=== PATIENT | female | born 1975 | race Caucasian/White ===

== ENCOUNTER → 2020-10-04 | Outpatient (CLI) | payer OTHER, SELFPAY ==
[2020-10-04 13:23] VITALS: BMI 34.9
[2020-10-06 20:08] LABS: Chlamydia By Nucleic Acid AMP Negative (Negative)
[2020-10-06 21:26] LABS: Gonococcus By Nucleic Acid AMP Negative (Negative)
== END | disposition home or self-care (01) ==
PROVIDERS: Visit Provider Nurse Practitioner Women's Health
DX: R10.2 Pelvic and perineal pain (principal)
CPT/HCPCS: 87070; 87086; 87088; 87205; 87491; 87591

== ENCOUNTER 2023-05-11 01:38 | Emergency (ER) | payer OTHER, SELFPAY ==
[2023-05-11 01:41] VITALS: BP 112/62; PULSE 112; RESP 22; TEMP 37.8; O2SAT 97; BMI 45.4
[2023-05-11 01:47] VITALS: BP 112/62; PULSE 110; RESP 24; TEMP 37.8; O2SAT 98
--- NOTE | 2023-05-11 01:54 | EX.ED.DYSGE1 ---
HPI History of Present Illness Chief Complaint: Fever Informant: patient Onset/Context/Timing Onset: Days (4) Context: Gradual Onset Timing: Continuous Quality: Cramping Location: Lower extremities Worsened by: Nothing Relieved by: Nothing Narrative Narrative: Patient presents with bilateral lower extremity pain that has been getting worse over the past 4 days. Patient states that has been constant. Patient describes it as cramping. Patient states that his over the thighs and lower legs. Patient states nothing makes it better nothing makes it worse. Patient states she was recently started on doxycycline for urinary tract infection. Patient states that since starting the doxycycline she has developed hives over her face, chest, and upper back. Patient denies any shortness of breath. Patient denies any difficulty swallowing. Patient does admit to some nausea but denies any vomiting. [facility] Medical History Encounter for Essure implantation Fibromyalgia Lupus (systemic lupus erythematosus) Pelvic pain West Nile fever Home Medications cholecalciferol (vitamin D3) 50 mcg (2,000 unit) tablet (Vitamin D3) 2,000 unit PO DAILY 05/15/13 [History Last Taken Unknown] hydroxychloroquine 200 mg tablet 300 mg PO DAILYCM 05/15/13 [History Last Taken Unknown] levothyroxine 137 mcg tablet 137 mcg PO DAILY 05/15/13 [History Last Taken Unknown] ferrous sulfate 325 mg (65 mg iron) tablet (Feosol) 325 mg PO DAILY 10/04/20 [History Last Taken Unknown] magnesium oxide 250 mg PO DAILY 10/04/20 [History Last Taken Unknown] mecobalamin (vitamin B12) 1,000 mcg disintegrating tablet,sublingual 1,000 mcg sublingual DAILY 10/04/20 [History Last Taken Unknown] bisoprolol fumarate 5 mg tablet 2.5 mg PO DAILY 05/11/23 [History Last Taken Unknown] cyclobenzaprine 10 mg tablet 10 mg PO Q12H PRN muscle spasm 05/11/23 [History Last Taken Unknown] doxycycline hyclate 100 mg capsule 100 mg PO Q12H 05/11/23 [History Last Taken Unknown] prednisone 20 mg tablet 60 mg (3 x 20 mg) PO DAILY #15 TABLETS 05/11/23 [Rx Last Taken Unknown] Allergy/AdvReac Type Severity Reaction Status Date / Time cephalexin Allergy Mild swelling Verified 10/04/20 13:11 clindamycin Allergy Mild rash Verified 10/04/20 13:11 lidocaine Allergy Mild unknown Verified 10/04/20 13:11 acetaminophen [From Percocet] Allergy Rash Verified 10/04/20 13:11 amitriptyline Allergy mental Verified 10/04/20 13:11 status change ciprofloxacin Allergy Anaphylaxis Verified 10/04/20 13:11 hydromorphone HCl Allergy Other Verified 10/04/20 13:11 [From Dilaudid] latex Allergy Rash Verified 10/04/20 13:11 morphine Allergy Hives Verified 10/04/20 13:11 oxaprozin [Oxaprozin] Allergy Rash Verified 10/04/20 13:11 oxycodone HCl [From Percocet] Allergy Rash Verified 10/04/20 13:11 Penicillins Allergy Rash Verified 10/04/20 13:11 sulfamethoxazole Allergy Rash Verified 10/04/20 13:11 [From Bactrim] tramadol HCl [From Ultram] Allergy Itching Verified 10/04/20 13:11 trimethoprim [From Bactrim] Allergy Rash Verified 10/04/20 13:11 Family History (Updated 10/04/20 @ 13:21 by Tish Skaggs) Grandmother Breast cancer Congestive heart failure Hypertension Diabetes Grandfather Diabetes Alzheimer disease Mother Graves disease Grandfather Myocardial infarction Surgical History S/P endometrial ablation S/P tonsillectomy S/P wisdom tooth extraction Status post breast reduction Social History Smoking Status: Former smoker alcohol intake: current details: occasionally substance use type: marijuana caffeine: No what type of physical activity do you participate in: aerobics and weight training frequency: 3-4 times per week seatbelt use: always do you feel safe at home: Yes additional social history: ( not legally) ROS ROS ED Constitutional Constitutional ED: Denies chills or fever(s) Eyes Eyes: Denies blurry vision or change in vision ENT ENT ED: Reports sore throat; Denies rhinorrhea Cardiovascular Cardiovascular: Denies chest pain or palpitations Respiratory/Chest Respiratory/Chest: Denies cough or dyspnea Gastrointestinal Gastrointestinal: Reports nausea; Denies vomiting Genitourinary Genitourinary ED: Denies dysuria or hematuria Musculoskeletal Musculoskeletal: Denies back pain or neck pain Integumentary Reports rash; Denies abscess Neurologic Neurologic: Reports headache(s); Denies weakness Allergic/Immunologic Allergic/Immunologic ED: Reports urticaria; Denies mouth swelling EXAM Physical Exam Const Vital Signs: 05/11/23 01:41 05/11/23 01:47 05/11/23 01:48 Temperature 100.1 F H 100.1 F H Temperature Source Oral Oral Pulse Rate 112 H 110 H Respiratory Rate 22 H 24 H Respiratory Pattern Tachypnea Blood Pressure 112/62 112/62 Blood Pressure Mean 78 78 Pulse Ox 97 98 Oxygen Delivery Method Room Air Room Air 05/11/23 05:39 05/11/23 06:14 05/11/23 08:09 Temperature 98.1 F 98.5 F 97.9 F Temperature Source Oral Oral Pulse Rate 95 92 83 Respiratory Rate 18 19 H 16 Respiratory Pattern Blood Pressure 95/53 L 101/56 L 89/56 L Blood Pressure Mean 67 71 67 Pulse Ox 95 97 95 Oxygen Delivery Method Room Air Room Air Positive well nourished and well developed General Appearance ED: well developed and NAD HEENT Reports moist mucous membranes Neck supple and no JVD Chest Wall inspection of chest normal and palpation of chest normal Resp normal respiratory effort and clear to auscultation bilaterally Cardio regular rate and regular rhythm GI non-tender and non-distended Palpation: soft Back/Spine Back/Spine Narrative: There is tenderness to palpation of the lower extremities bilaterally. There is no edema. There is no erythema or warmth noted. There is full range of motion. Pedal pulses are equal bilaterally. Sensation was intact to light touch bilateral lower extremities. Strength is 5/5 bilaterally in the lower extremities. Extremity normal to inspection Neuro oriented x3, CN's II-XII intact bilaterally and no sensory deficits noted Sensorium / Orientation: alert Motor Exam: strength 5/5 throughout Psych mental status grossly normal Skin Skin Narrative: There is an urticarial rash noted over the face, upper chest, and upper back. There are no vesicles or pustules noted. There is no involvement of mucous membranes. There are no petechia noted. There is no involvement of the palms or soles. MDM MDM MDM Narrative Medical decision making narrative: Differential diagnosis includes electrolyte abnormality, anxiety, allergic reaction, autoimmune reaction, and infection. CBC will be obtained to assess for leukocytosis and anemia. Basic metabolic profile will be obtained to assess for electrolyte abnormality and renal function. Urinalysis will be obtained to assess for urinary tract infection and hematuria. Lab Data Attestation: I reviewed the patient's lab results. Lab results narrative: CBC was reviewed and was within normal limits. Basic metabolic profile was reviewed. Sodium was slightly low at 129 and potassium was 3.3. Chloride was slightly low at 95. Creatinine was slightly elevated at 1.03. The remainder is within normal limits. Urinalysis was reviewed. There is a leukocyte esterase of 25 with 2+ bacteria. There is 0-5 white blood cells seen however. Urine bilirubin was 3 and urine urobilinogen was 4. Occult blood was 25. There is 0 red blood cells. Labs: Laboratory Results - last 24 hr 05/11/23 05/11/23 05:05 05:45 WBC 9.8 RBC 4.78 Hgb 14.2 Hct 40.6 MCV 84.9 MCH 29.7 MCHC 35.0 RDW Std Deviation 36.1 RDW Coeff of Genesis 11.7 Plt Count 108 L MPV 10.3 Immature Gran % (Auto) 0.400 Neut % (Auto) 91.6 H Lymph % (Auto) 5.3 L [place] % (Auto) 2.0 Eos % (Auto) 0.3 Baso % (Auto) 0.4 Absolute Neuts (auto) 9.0 H Absolute Lymphs (auto) 0.52 L Nucleated RBC % 0 Differential Comment SCANNED Sodium 129 L Potassium 3.3 L Chloride 95 L Carbon Dioxide 27.0 Anion Gap 7 BUN 15 Creatinine 1.03 H Estim Creat Clear Calc 55.25 Est GFR (MDRD) Af Amer 73 Est GFR (MDRD) Non-Af 61 BUN/Creatinine Ratio 14.6 Glucose 115 H Calcium 8.1 L Urine Color Tisha Urine Clarity Sl. Cloudy Urine pH 5.0 Ur Specific [place] 1.025 Urine Protein 100 H Urine Glucose (UA) Normal Urine Ketones 5 H Urine Occult Blood 25 H Urine Nitrite Positive H Urine Bilirubin 3 H Urine Urobilinogen 4 H Ur Leukocyte Esterase 25 H Urine RBC 0 SEEN Urine WBC 0-5 SEEN Ur Squamous Epith Cells 0-5 SEEN Urine Bacteria 2+ Coarse Granular Casts 10-25 SEEN Urine Mucus 0 SEEN Treatment and Re-Evaluation :: Patient was given IV fluids. Patient was given Toradol, Zofran, Solu-Medrol, and Benadryl. Patient was feeling better on reevaluation. Patient was advised of her findings. Patient was instructed to drink plenty of fluids. Patient was instructed to finish her doxycycline as prescribed. Patient was given a prescription for prednisone. Patient was instructed to follow-up with her primary care physician in 5 to 7 days. Patient understood and was agreeable with the plan. All questions were answered. Discharge Plan Triage Chief Complaint: Fever Other Complaint: Lower Extremity Injury ED Provider: Johny Chen Dx/Rx/DC Orders Clinical Impression: Lower extremity pain, Urinary tract infection, Urticaria Instructions: ED Hives (Adult), ED Pain, Acute, Uncertain Cause Prescriptions: New prednisone 20 mg tablet 60 mg PO DAILY Qty: 15 0RF No Action ferrous sulfate [Feosol] 325 mg (65 mg iron) tablet 325 mg PO DAILY magnesium oxide 250 mg magnesium tablet 250 mg PO DAILY mecobalamin (vitamin B12) 1,000 mcg tablet,disintegrating 1,000 mcg sublingual DAILY Rx Instructions: place tablet under tongue and allow to dissolve for at least30 secs before swallowing levothyroxine 137 MCG tablet 137 mcg PO DAILY hydroxychloroquine 200 MG tablet 300 mg PO DAILYCM cholecalciferol (vitamin D3) [Vitamin D3] 2,000 UNIT tablet 2,000 unit PO DAILY doxycycline hyclate 100 mg capsule 100 mg PO Q12H Patient Comments: take 1 capsule by mouth twice a day for 10 days --WITH LARGE GLAS... (REFER TO PRESCRIPTION NOTES). cyclobenzaprine 10 mg tablet 10 mg PO Q12H PRN (Reason: muscle spasm) Patient Comments: take 1/2 to 1 tablet by mouth three times a day if needed for muscle spasm bisoprolol fumarate 5 mg tablet 2.5 mg PO DAILY Patient Comments: take 1/2 tablet by mouth daily Referrals: Bala Lindquist [[facility]] - 3-5 Days Disposition Disposition: Home, Self Care Discharge Date/Time: 05/11/23 08:11
[2023-05-11] MEDS: 0.9% Normal Saline (1000mL) 1,000 ML 1000 ML IV (04:59)
[2023-05-11] MEDS: Ondansetron 4 MG/2 ML Vial IV (05:00)
[2023-05-11] MEDS: Ketorolac 30 MG/ML Syringe IV (05:01)
[2023-05-11] MEDS: DiphenhydrAMINE 50 MG/ML Syringe 25 MG IV (05:02)
[2023-05-11] MEDS: MethylPREDNISolone 125 MG/2 ML Vial 60 MG IV (05:04)
[2023-05-11 05:15] LABS: Absolute Lymphocyte Count 0.52 X10^3/uL (0.83-4.51); Basophil# 0.04 X10^3/uL; Basophil% 0.4 % (0-1); Eosinophil# 0.03 X10^3/uL; Eosinophils% 0.3 % (0-5); Hematocrit 40.6 % (37-47); Hemoglobin 14.2 g/dL (12.0-15.0); Lymphocyte # 0.52 X10^3/ul (0.83-4.51); Lymphocyte % 5.3 % (19-41); Mean Corpuscular Hgb 29.7 pg (27.0-32.0); Mean Corpuscular Volume 84.9 fL (81-99); Mean Platelet Vol. 10.3 fl (6.2-12.0); NRBC Flagged by Analyzer 0 % (0-5); Neutrophil # 8.98 X10^3/uL (2.7-7.7); Neutrophil % 91.6 % (47-70); POSITIVE DIFFERENTIAL YES; POSITIVE MORPHOLOGY YES; Platelet Count 108 K/mm3 (150-450); RBC Distribution Width CV 11.7 % (11.6-14.6); RBC Distribution Width SD 36.1 fl (35.1-43.9); Red Blood Count 4.78 M/mm3 (4.2-5.4); White Blood Count 9.8 K/mm3 (4.4-11.0)
[2023-05-11 05:17] LABS: Differential Indicated SCAN CRITERIA MET
[2023-05-11 05:29] LABS: Anion Gap 7 (5-15); BUN 15 mg/dL (7-18); BUN/Creat Ratio 14.6 RATIO (10-20); Calcium,Total 8.1 mg/dL (8.5-10.1); Chloride 95 mmol/L (98-107); Creatinine, Serum 1.03 mg/dL (0.55-1.02); EST Glomerular Filtration Rate 61 mL/min (>60); Est Glom Filt Rate - Afr Amer 73 mL/min (>60); Estimated Creatinine Clearance 55.25 ml/min; Glucose 115 mg/dL (74-106); Potassium 3.3 mmol/L (3.5-5.1); Sodium Level 129 mmol/L (136-145)
[2023-05-11 05:39] VITALS: BP 95/53; PULSE 95; RESP 18; TEMP 36.7; O2SAT 95
[2023-05-11 05:44] LABS: Differential Comment SCANNED
[2023-05-11 05:54] LABS: Mucous, Urine 0 SEEN /hpf (<or=2+); Red Blood Cells-Urine 0 SEEN /hpf (0-5)
[2023-05-11 05:55] LABS: Color, Urine Amber (Yellow); Glucose, Dipstick Normal (Normal); Ketone-Dipstick 5 mg/dl (Negative); Leukocyte Esterase-Dipstick 25 /ul (Negative); Nitrite-Dipstick Positive (Negative); Occult Blood-Urine 25 /ul (Negative); Protein-Dipstick 100 mg/dl (Negative); Specific Gravity, Urine 1.025 (1.002-1.030); Urine Clarity Sl. Cloudy (Clear); Urine Urobilinogen 4 mg/dl (Normal)
[2023-05-11 06:08] LABS: Urine Bilirubin Dipstick 3 mg/dL (Negative)
[2023-05-11 06:10] LABS: Bacteria 2+ /hpf (None Seen); Squamous Epithelial Cells - UA 0-5 SEEN /hpf (5-10); White Blood Cells 0-5 SEEN /hpf (0-5)
[2023-05-11 06:11] LABS: Coarse Granular Cast 10-25 SEEN /lpf (0-5 /lpf)
[2023-05-11 06:14] VITALS: BP 101/56; PULSE 92; RESP 19; TEMP 36.9; O2SAT 97
[2023-05-11 08:09] VITALS: BP 89/56; PULSE 83; RESP 16; TEMP 36.6; O2SAT 95
--- NOTE | 2023-05-11 08:10 | ED.RN ---
dr aware of lower bp but MAP 68.
== END 2023-05-11 08:11 | disposition home or self-care (01) ==
PROVIDERS: Emergency Provider Emergency Medicine; Visit Provider Emergency Medicine
DX: M79.651 Pain in right thigh (principal); M32.9 Systemic lupus erythematosus, unspecified; M79.652 Pain in left thigh; M79.661 Pain in right lower leg; M79.662 Pain in left lower leg; N39.0 Urinary tract infection, site not specified; R11.0 Nausea; L50.9 Urticaria, unspecified; Z87.891 Personal history of nicotine dependence; Z79.899 Other long term (current) drug therapy
CPT/HCPCS: 80048; 81001; 85025; 96361; 96374; 96375; 99285; J7030; A4216; J2405

== ENCOUNTER 2023-05-16 09:31 | Emergency (ER) | payer OTHER, SELFPAY ==
[2023-05-16 09:34] VITALS: BP 121/108; PULSE 118; RESP 20; TEMP 36.6; O2SAT 99
--- NOTE | 2023-05-16 10:02 | EX.ED.DYSGE1 ---
HPI History of Present Illness Chief Complaint: Rash Informant: patient and spouse/S.O. Narrative Narrative: Patient presents with hives and generally not feeling well. Patient states she started doxycycline last . She had gone to her doctor for routine follow-up of her multiple medical illnesses. Patient has fibromyalgia, Sjogren's syndrome, Raynaud's, thyroid disease and lupus. She is being worked up for mast cell problems due to her multiple allergies. During the exam for that visit, she was found to have a raging ear infection on the left side. She was not having symptoms of this. She was placed on doxycycline. Almost immediately after taking it on she developed hives. She kept taking it Saturday and Saturday and then came in here. At that point the doxycycline was stopped and she was started on prednisone. She is now finished that. She has also been taking Benadryl. She states the rash is still present. She also has been having bilateral leg pain but that has been going on for a while. At the end of the visit she states what she would like is to be admitted because she just does not feel well. It sounds like this not feeling well predates this rash significantly but the rash has caused significant stress for her. [facility] Medical History Encounter for Essure implantation Fibromyalgia Lupus (systemic lupus erythematosus) Pelvic pain West Nile fever Home Medications hydroxychloroquine 200 mg tablet 300 mg PO DAILYCM 05/15/13 [History Last Taken Unknown] levothyroxine 137 mcg tablet 137 mcg PO DAILY 05/15/13 [History Last Taken Unknown] bisoprolol fumarate 5 mg tablet 2.5 mg PO DAILY 05/11/23 [History Last Taken Unknown] cyclobenzaprine 10 mg tablet 10 mg PO TID PRN PRN muscle spasm 05/11/23 [History Last Taken Unknown] doxycycline hyclate 100 mg capsule 100 mg PO Q12H 05/11/23 [History Last Taken Unknown] lamotrigine 25 mg tablet 50 mg PO QHS 05/16/23 [History Last Taken Unknown] montelukast 10 mg tablet 10 mg PO QHS 05/16/23 [History Last Taken Unknown] prednisone 20 mg tablet 60 mg (3 x 20 mg) PO DAILY 4 days #12 TABLETS 12/28/23 [Rx Last Taken Unknown] Allergy/AdvReac Type Severity Reaction Status Date / Time doxycycline Allergy Intermediate Rash Verified 05/16/23 09:33 cephalexin Allergy Mild swelling Verified 05/16/23 09:33 clindamycin Allergy Mild rash Verified 05/16/23 09:33 lidocaine Allergy Mild unknown Verified 05/16/23 09:33 acetaminophen [From Percocet] Allergy Rash Verified 05/16/23 09:33 amitriptyline Allergy mental Verified 05/16/23 09:33 status change ciprofloxacin Allergy Anaphylaxis Verified 05/16/23 09:33 hydromorphone HCl Allergy Other Verified 05/16/23 09:33 [From Dilaudid] latex Allergy Rash Verified 05/16/23 09:33 morphine Allergy Hives Verified 05/16/23 09:33 oxaprozin [Oxaprozin] Allergy Rash Verified 05/16/23 09:33 oxycodone HCl [From Percocet] Allergy Rash Verified 05/16/23 09:33 Penicillins Allergy Rash Verified 05/16/23 09:33 sulfamethoxazole Allergy Rash Verified 05/16/23 09:33 [From Bactrim] tramadol HCl [From Ultram] Allergy Itching Verified 05/16/23 09:33 trimethoprim [From Bactrim] Allergy Rash Verified 05/16/23 09:33 Family History Grandmother Breast cancer Congestive heart failure Hypertension Diabetes Grandfather Diabetes Alzheimer disease Mother Graves disease Grandfather Myocardial infarction Surgical History S/P endometrial ablation S/P tonsillectomy S/P wisdom tooth extraction Status post breast reduction Social History Smoking Status: Former smoker alcohol intake: current details: occasionally substance use type: marijuana caffeine: No what type of physical activity do you participate in: aerobics and weight training frequency: 3-4 times per week seatbelt use: always do you feel safe at home: Yes additional social history: ( not legally) ROS ROS ED Constitutional Constitutional ED: Denies chills, fever(s) or subjective Eyes Eyes: Denies change in vision ENT ENT ED: Reports other Details: Patient states she is not eating. But then I find out she is drinking protein shakes and drinking plenty of fluids. She states when food touches her mouth it haley so she does not eat it. But she is still moving bowels. She is not nauseated ; Denies ear pain, rhinorrhea or sore throat Cardiovascular Cardiovascular: Denies chest pain Respiratory/Chest Respiratory/Chest: Denies cough or dyspnea Gastrointestinal Gastrointestinal: Denies abdominal pain, constipation, diarrhea, nausea or vomiting Genitourinary Genitourinary ED: Denies dysuria Musculoskeletal Musculoskeletal: Reports arthralgias, myalgias and other Details: Patient has chronic pains but these are not new or different today. Integumentary Reports rash Neurologic Neurologic: Reports other Details: Patient feels generalized weakness but nothing focal. Psychiatric Psychiatric: Reports anxiety Hematologic/Lymphatic Hematologic/Lymphatic: Denies easy bleeding, easy bruising or lymphadenopathy Allergic/Immunologic Allergic/Immunologic ED: Reports urticaria; Denies mouth swelling or tongue swelling EXAM Physical Exam Narrative Exam Narrative: Patient is awake alert. She is in no acute distress. Hives are visible. HEENT: Mucous membranes are still moist. I do not see any sores or lesions ulcerations or petechiae. No swelling. Her voice is normal. No sinus tenderness. Both tympanic membranes look clear. There is trace fluid which can be normal. There is some wax in the canals but no sign of an otitis externa. She does not look clinically infected at this time. Neck is supple without stridor lymphadenopathy Heart is regular. Rate sounds to be about 90 at this time. Peripheral pulses are normal x 4. Lungs are clear bilaterally and saturations are normal at 99% on room air showing no hypoxia. Abdomen is soft and nontender. Of note patient is drinking some fluids now. No CVA tenderness. Extremities show no asymmetry swelling or because of her ongoing leg pain. Skin does show diffuse hives and erythema. This blanches easily. No vesicles. No petechiae. Const Vital Signs: 05/16/23 09:34 05/16/23 10:45 Temperature 98 F 98.1 F Temperature Source Temporal Oral Pulse Rate 118 H 104 H Respiratory Rate 20 H 16 Blood Pressure 121/108 H 112/86 H Blood Pressure Mean 112 94 Pulse Ox 99 100 Oxygen Delivery Method Room Air Room Air MDM MDM MDM Narrative Medical decision making narrative: Patient CBC does show an elevated white count but she has been on prednisone. Platelets and hemoglobin are normal. Patient's electrolytes show no marked abnormalities. There is a slight increase of BUN and creatinine ratio consistent with the high ratio she was also given a fluid as here. Glucose is controlled. Sodium is minimally low at 132. Patient's liver function tests do show slight bump. But this can also happen with steroids. She is not having abdominal pain and she has no right upper quadrant tenderness at all. I think this can be followed as an outpatient. I did recheck her. She is less flushed on the face. Rash on the body does not look to be markedly different. I believe the patient's hives are due to doxycycline. She last stopped this about 5 days ago. This medicine has a long half-life of almost 1 day. So she is just getting to the point where the medicine is out of her system at about 5 to 5-1/2 half-lives. Therefore I am not so surprised that her hives are not gone. I will continue her steroids for another 4 days. She will follow-up with her primary physician. Lab Data Attestation: I reviewed the patient's lab results. Labs: Laboratory Results - last 24 hr 05/16/23 10:20 WBC 14.1 H RBC 4.96 Hgb 14.7 Hct 41.9 MCV 84.5 MCH 29.6 MCHC 35.1 RDW Std Deviation 40.0 RDW Coeff of Genesis 13.1 Plt Count 341 MPV 9.9 Immature Gran % (Auto) 4.000 H Neut % (Auto) 69.6 Lymph % (Auto) 11.4 L [place] % (Auto) 9.1 Eos % (Auto) 5.5 H Baso % (Auto) 0.4 Absolute Neuts (auto) 9.8 H Absolute Lymphs (auto) 1.61 Nucleated RBC % 0 Sodium 132 L Potassium 3.6 Chloride 98 Carbon Dioxide 27.0 Anion Gap 7 BUN 33 H Creatinine 1.16 H Est GFR (MDRD) Af Amer 64 Est GFR (MDRD) Non-Af 53 L BUN/Creatinine Ratio 28.4 H Glucose 88 Calcium 8.6 Total Bilirubin 0.70 AST 162 H ALT 87 H Alkaline Phosphatase 183 H Total Protein 6.1 L Albumin 2.4 L Globulin 3.7 Albumin/Globulin Ratio 0.6 L Discharge Plan Triage Chief Complaint: Rash ED Provider: Corwin Zepeda Dx/Rx/DC Orders Clinical Impression: Allergy to antibiotic, Hives Instructions: ED Hives (Adult) Prescriptions: New prednisone 20 mg tablet 60 mg PO DAILY 4 Days Qty: 12 0RF No Action levothyroxine 137 MCG tablet 137 mcg PO DAILY hydroxychloroquine 200 MG tablet 300 mg PO DAILYCM doxycycline hyclate 100 mg capsule 100 mg PO Q12H Patient Comments: take 1 capsule by mouth twice a day for 10 days --WITH LARGE GLAS... (REFER TO PRESCRIPTION NOTES). cyclobenzaprine 10 mg tablet 10 mg PO TID PRN PRN (Reason: muscle spasm) Patient Comments: take 1/2 to 1 tablet by mouth three times a day if needed for muscle spasm bisoprolol fumarate 5 mg tablet 2.5 mg PO DAILY Patient Comments: take 1/2 tablet by mouth daily lamotrigine 25 mg tablet 50 mg PO QHS Patient Comments: take 1 tablet by mouth at bedtime for 2 weeks then INCREASE to 2 tablets THEREAFTER montelukast 10 mg tablet 10 mg PO QHS Patient Comments: take 1 tablet by mouth nightly Primary Care Provider: Kortney Mcintyre MD Referrals: Care Physician,No Primary [Non-Staff] - Activity Restrictions/Additional Instructions: Follow-up with your primary physician, Dr. Mcintyre in the next few days for recheck. Disposition Disposition: Home, Self Care
[2023-05-16] MEDS: 0.9% Normal Saline (1000mL) 1,000 ML 1000 ML IV (10:10)
[2023-05-16] MEDS: MethylPREDNISolone 125 MG/2 ML Vial 60 MG IV (10:11)
[2023-05-16] MEDS: DiphenhydrAMINE 50 MG/ML Syringe 25 MG IV (10:17)
[2023-05-16 10:29] LABS: Absolute Lymphocyte Count 1.61 X10^3/uL (0.83-4.51); Absolute Neutrophil Count 9.8 X10^3/uL (2.0-7.7); Basophil# 0.06 X10^3/uL; Basophil% 0.4 % (0-1); Eosinophil# 0.78 X10^3/uL; Eosinophils% 5.5 % (0-5); Hematocrit 41.9 % (37-47); Hemoglobin 14.7 g/dL (12.0-15.0); Lymphocyte # 1.61 X10^3/ul (0.83-4.51); Lymphocyte % 11.4 % (19-41); Mean Corp Hgb Conc 35.1 g/dL (32-36); Mean Corpuscular Hgb 29.6 pg (27.0-32.0); Mean Corpuscular Volume 84.5 fL (81-99); Mean Platelet Vol. 9.9 fl (6.2-12.0); Monocyte# 1.28 X10^3/uL; Monocyte% 9.1 % (0-10); NRBC Flagged by Analyzer 0 % (0-5); Neutrophil # 9.82 X10^3/uL (2.7-7.7); Neutrophil % 69.6 % (47-70); Platelet Count 341 K/mm3 (150-450); RBC Distribution Width CV 13.1 % (11.6-14.6); Red Blood Count 4.96 M/mm3 (4.2-5.4); White Blood Count 14.1 K/mm3 (4.4-11.0)
--- OUTSIDE RECORDS SUMMARY | 2023-05-16 10:37 | XMS RPT_ITS | CCD ---
Author Name Unknown Address [address] [place] [address] Organization [facility] Care Team Providers Care Creative Services Designer Name Role Phone Nathan Lidnquist MD Primary Care Provider [phone] NATHAN LINDQUIST Primary Care Unavailable Cait DIXON Attending Unavailable NATHAN LINDQUIST Primary Care Unavailable Cait DIXON Attending Unavailable NATHAN LINDQUIST Primary Care Unavailable Cait DIXON Referring Unavailable Cait DIXON Attending Unavailable NATHAN LINDQUIST Primary Care Unavailable Nathan Lindquist MD Primary Care Provider REFERRING, JANIS Attending Unavailable YAW KEITH, DR BULLOCK Primary Care Unavailab HAKAN Judge Attending Unavailable HERBERT, HAKAN Referring Unavailable HERBERT, HAKAN Primary Care Unavailable HERBERT, HAKAN Primary Care Unavailable HERBERT, HAKAN Referring Unavailable HERBERT, HAKAN Attending Unavailable HERBERT, HAKAN Primary Care Unavailable HERBERT, HAKAN Attending Unavailable HERBERT, HAKAN Primary Care Unavailable HERBERT, HAKAN Referring Unavailable HERBERT, HAKAN Attending Unavailable HERBERT, HAKAN Primary Care Unavailable ANGELA JUNE Attending Unavailable WALTKAMINEYMAR Referring Unavailable HERBERT, HAKAN Referring Unavailable HERBERT, HAKAN Primary Care Unavailable HERBERT, HAKAN Primary Care Unavailable HERBERT, HAKAN Attending Unavailable HERBERT, HAKAN Referring Unavailable HERBERT, HAKAN Referring Unavailable HERBERT, HAKAN Primary Care Unavailable HERBERT, HAKAN Primary Care Unavailable WALT NEYMAR Referring Unavailable MUSTAPHA ADAMES Attending Unavailable HERBERT, HAKAN Referring Unavailable HERBERT, HAKAN Primary Care Unavailable HERBERT, HAKAN Referring Unavailable HERBERT, HAKAN Primary Care Unavailable HERBERT, HAKAN Primary Care Unavailable HERBERT, HAKAN Attending Unavailable HERBERT, HAKAN Primary Care Unavailable HERBERT, HAKAN Referring Unavailable MINH JUAREZ Attending Unavailable HERBERT, HAKAN Primary Care Unavailable HERBERT, HAKAN Attending Unavailable WALTKAMINEYMAR Attending Unavailable HERBERT, HAKAN Primary Care Unavailable HERBERT, HAKAN Referring Unavailable HERBERT, HAKAN Primary Care Unavailable HERBERT, HAKAN Referring Unavailable HERBERT, HAKAN Primary Care Unavailable HERBERT, HAKAN Referring Unavailable HERBERT, HAKAN Attending Unavailable HERBERT, HAKAN Primary Care Unavailable HERBERT, HAKAN Attending Unavailable HERBERT, HAKAN Primary Care Unavailable KOLYCHEV, MINH Referring Unavailable KOLYCHEV, MINH Attending Unavailable HERBERT, HAKAN Primary Care Unavailable KOLYCHEV, MINH Attending Unavailable KOLYCHEV, MINH Referring Unavailable HERBERT, HAKAN Primary Care Unavailable HERBERT, HAKAN Referring Unavailable HERBERT, HAKAN Attending Unavailable HERBERT, HAKAN Referring Unavailable HERBERT, HAKAN Primary Care Unavailable HERBERT, HAKAN Primary Care Unavailable HERBERT, HAKAN Attending Unavailable HERBERT, HAKAN Referring Unavailable HERBERT, HAKAN Primary Care Unavailable HERBERT, HAKAN Referring Unavailable HERBERT, HAKAN Primary Care Unavailable HERBERT, HAKAN Primary Care Unavailable KAMI GODOYELLE Attending Unavailable HERBERT, HAKAN Primary Care Unavailable NGUYEN GARZA Attending Unavailable HERBERT, HAKAN Primary Care Unavailable HERBERT, HAKAN Referring Unavailable GISELLEECHO BrandtTA Attending Unavailable HERBERT, HAKAN Primary Care Unavailable WALT, NEYMAR Referring Unavailable NEYMAR GODOY Attending Unavailable HERBERT, HAKAN Primary Care Unavailable MUSTAPHA ADAMES Attending Unavailable WALT, NEYMAR Referring Unavailable Allergies Allergy Classification Reported Allergen(s) Allergy Type Date of Onset Reaction(s) Facility (16 sources) Acetaminophen; Translations: [ACETAMINOPHEN] Drug Allergy 10-05-[address] [facility] (16 sources) Acetaminophen / oxyCODONE; Translations: [OXYCODONE-ACETAMIN OPHEN] Drug Allergy 04-12-[address] [facility] (16 sources) Amitriptyline; Translations: [AMITRIPTYLINE HCL] Drug Allergy 03-30-20 14 Mental Status Change [facility] (16 sources) Cephalexin; Translations: [CEPHALEXIN] Drug Allergy 12-21-19 15 Swelling [facility] (16 sources) Ciprofloxacin; Translations: [CIPROFLOXACIN] Drug Allergy 04-12-20 08 Anaphylaxis [facility] (16 sources) Clindamycin; Translations: [CLINDAMYCIN] Drug Allergy 12-31-[address] [facility] (16 sources) fentaNYL; Translations: [FENTANYL] Drug Allergy 12-15-19 Other: See Comments [facility] Work Phone: (16 sources) Iodine; Translations: [IODINE] Drug Allergy 12-17-[address] [facility] Work Phone: (16 sources) Ketorolac; Translations: [KETOROLAC] Drug Allergy 12-17-[address] [facility] Work Phone: (16 sources) Latex; Translations: [LATEX] Drug Intolerance 07-05-19 09 Rash, Other: See [facility] (16 sources) Lidocaine; Translations: [LIDOCAINE] Drug Allergy 11-06-[address] [facility] (16 sources) Morphine; Translations: [MORPHINE] Drug Allergy 04-12-20 08 Hives [facility] (16 sources) oxaprozin; Translations: [OXAPROZIN] Drug Allergy 11-07-[address] [facility] (2 sources) Penicillins; Translations: [PENICILLINS] Drug Allergy 04-12-20 08 Rash, GI Upset, Itching [facility] (16 sources) Sulfamethoxazole; Translations: [SULFAMETHOXAZOLE] Drug Allergy 10-05-[address] [facility] (16 sources) Sulfamethoxazole / Trimethoprim; Translations: [SULFAMETHOXAZOLE-T RIMETHOPRIM] Drug Allergy 04-12-20 08 Other: See [facility] (16 sources) traMADol; Translations: [TRAMADOL HCL] Drug Allergy 08-05-19 11 Itching [facility] (16 sources) Trimethoprim; Translations: [TRIMETHOPRIM] Drug Allergy 10-05-[address] [facility] (14 sources) Penicillins Drug Allergy 04-12-20 08 Rash, GI Upset, Itching [facility] Medications Current Medications Medication Drug Class(es) Dates Sig (Normalized) Sig (Original) predniSONE 10 mg oral tablet (1 source) Start: 04-20-2021 End: 10-24-2021 predniSONE (DELTASONE) 10 mg tablet Take by mouth with food. Take 3 tabs daily x 7 days, then take 2 tabs daily x 7 days, then take 1 tab daily x 7 days, then stop. 42 tablet 0 04/20/2021 10/24/2021 Discontinued Completed/Discontinued Medications Medication Drug Class(es) Dates Sig (Normalized) Sig (Original) acetaminophen 325 mg oral tablet (15 sources) Start: 12-26-2014 take 2 tablets by mouth every four hours as needed acetaminophen (TYLENOL) 325 mg tablet Take 2 tablets by mouth every 4 hours as needed for Pain. 50 tablet 0 12/26/2014 Active Problems Active Problems Problem Classification Problem Date Documented Date Episodic/Chronic Abdominal pain (1 source) Upper abdominal pain; Translations: [Upper abdominal pain, unspecified] Episodic Allergic reactions (3 sources) Eczema; Translations: [Other specified dermatitis] Onset: 11-30-2022 Episodic Anxiety disorders (19 sources) Anxiety disorder; Translations: [Anxiety disorder, unspecified] Onset: 11-30-2022 11-12-2011 Chronic Asthma (2 sources) Moderate persistent asthma, uncomplicated; Translations: [Moderate persistent asthma, uncomplicated] Onset: 02-28-2023 Chronic Attention-deficit, conduct, and disruptive behavior disorders (4 sources) Attention deficit hyperactivity disorder, combined type; Translations: [Attention-deficit hyperactivity disorder, combined type] Chronic Attention-deficit, conduct, and disruptive behavior disorders (2 sources) Attention-deficit hyperactivity disorder, unspecified type; Translations: [Attention-deficit hyperactivity disorder, unspecified type] Onset: 04-05-2023 Chronic Attention-deficit, conduct, and disruptive behavior disorders (2 sources) Attention-deficit hyperactivity disorder, predominantly inattentive type; Translations: [Attention-deficit hyperactivity disorder, predominantly inattentive type] Onset: 07-24-2022 Chronic Cardiac dysrhythmias (2 sources) Atrial premature depolarization; Translations: [Atrial premature depolarization] Onset: 02-14-2023 Chronic Disorders usually diagnosed in infancy, childhood, or adolescence (20 sources) Attention deficit hyperactivity disorder, predominantly inattentive type; Translations: [Other specified behavioral and emotional disorders with onset usually occurring in childhood and adolescence] Onset: 10-19-2015 03-02-2013 Chronic E Codes: Adverse effects of medical drugs (1 source) Vaccines adverse reaction; Translations: [Adverse effect of other vaccines and biological substances, initial encounter] Episodic Esophageal disorders (16 sources) Gastroesophageal reflux disease; Translations: [Gastro-esophageal reflux disease without esophagitis] Onset: 07-18-2015 07-18-2015 Chronic Headache; including migraine (17 sources) Cluster headache; Translations: [Cluster headache syndrome, unspecified, not intractable] Onset: 08-24-2011 08-24-2011 Chronic Immunizations and screening for infectious disease (8 sources) Contact with or exposure to other viral diseases; Translations: [Close exposure to COVID-19 virus] Onset: 01-01-2023 Episodic Joint disorders and dislocations; trauma-related (2 sources) Chronic instability of knee, right knee; Translations: [Chronic instability of knee, right knee] Onset: 11-30-2022 Chronic Miscellaneous mental health disorders (15 sources) Psychosomatic factor in physical condition; Translations: [Psychological and behavioral factors associated with disorders or diseases classified elsewhere] Onset: 08-24-2011 08-24-2011 Chronic Mood disorders (2 sources) Major depressive disorder, recurrent severe without psychotic features; Translations: [Major depressive disorder, recurrent severe without psychotic features (HCC)] Onset: 11-30-2022 Chronic Nausea and vomiting (1 source) Nausea; Translations: [Nausea] Episodic Nonspecific chest pain (2 sources) Chest pain, unspecified; Translations: [Chest pain, unspecified] Onset: 02-14-2023 Episodic Osteoarthritis (15 sources) Arthritis; Translations: [Unspecified osteoarthritis, unspecified site] 05-15-2021 Chronic Other connective tissue disease (20 sources) Fibromyalgia; Translations: [Fibromyalgia] Onset: 03-27-2023 Episodic Other inflammatory condition of skin (18 sources) Lupus erythematosus; Translations: [Discoid lupus erythematosus] Chronic Other lower respiratory disease (2 sources) Shortness of breath; Translations: [Shortness of breath] Onset: 02-14-2023 Episodic Other nervous system disorders (15 sources) Tarsal tunnel syndrome; Translations: [Tarsal tunnel syndrome, unspecified lower limb] Onset: 06-01-2010 12-29-2010 Chronic Other nervous system disorders (15 sources) Radial nerve entrapment; Translations: [Lesion of radial nerve, unspecified upper limb] Onset: 08-24-2011 08-24-2011 Chronic Other nervous system disorders (15 sources) Ulnar neuropathy; Translations: [Lesion of ulnar nerve, unspecified upper limb] Onset: 03-17-2012 03-17-2012 Chronic Other nervous system disorders (2 sources) Attention and concentration deficit; Translations: [Attention and concentration deficit] Onset: 11-30-2022 Chronic Other non-traumatic joint disorders (1 source) Multiple joint pain; Translations: [Pain in unspecified joint] Episodic Other non-traumatic joint disorders (2 sources) Pain in unspecified joint; Translations: [Pain in unspecified joint] Onset: 03-27-2023 Episodic Other nutritional; endocrine; and metabolic disorders (15 sources) Body mass index 40+ - severely obese; Translations: [Morbid (severe) obesity due to excess calories] Onset: 04-12-2008 09-24-2017 Chronic Otitis media and related conditions (2 sources) Acute suppurative otitis media without spontaneous rupture of ear drum, left ear; Translations: [Acute suppurative otitis media without spontaneous rupture of ear drum, left ear] Onset: 05-09-2023 Episodic Residual codes; unclassified (16 sources) Obstructive sleep apnea syndrome; Translations: [Obstructive sleep apnea (adult) (pediatric)] Onset: 04-02-2013 05-15-2021 Chronic Residual codes; unclassified (2 sources) Obstructive sleep apnea (adult) (pediatric); Translations: [Obstructive sleep apnea (adult) (pediatric)] Onset: 04-05-2023 Chronic Residual codes; unclassified (2 sources) Other amnesia; Translations: [Other amnesia] Onset: 01-02-2023 Episodic Spondylosis; intervertebral disc disorders; other back problems (15 sources) Lumbosacral spondylosis without myelopathy; Translations: [Spondylosis without myelopathy or radiculopathy, lumbosacral region] Onset: 08-30-2010 05-15-2021 Chronic Systemic lupus erythematosus and connective tissue disorders (20 sources) Systemic lupus erythematosus; Translations: [Systemic lupus erythematosus, unspecified] Onset: 09-14-2010 Chronic Thyroid disorders (20 sources) Hypothyroidism; Translations: [Hypothyroidism, unspecified] Onset: 04-12-2008 03-17-2015 Chronic Unclassified (1 source) Contact with and (suspected) exposure to covid-19; Translations: [Contact with and (suspected) exposure to covid-19] Onset: 05-09-2023 Unclassified (1 source) Post covid-19 condition, unspecified; Translations: [Post covid-19 condition, unspecified] Onset: 11-30-2022 Unclassified (1 source) Other ventricular tachycardia (HCC); Translations: [Other ventricular tachycardia (HCC)] Onset: 02-14-2023 Unclassified (2 sources) 6 Month Follow-up; Translations: [6 Month Follow-up] Onset: 12-04-2022 Past or Other Problems Problem Classification Problem Date Documented Date Episodic/Chronic Administrative/social admission (2 sources) Persons encountering health services in other specified circumstances; Translations: [Persons encountering health services in other specified circumstances] Onset: 05-31-2022 Episodic Cardiac dysrhythmias (2 sources) Palpitations; Translations: [Palpitations] Onset: 11-30-2022 Episodic Malaise and fatigue (2 sources) Fatigue; Translations: [Other fatigue] Onset: 02-01-2022 Episodic Other aftercare (17 sources) Drug therapy finding; Translations: [Other jail (current) drug therapy] Onset: 08-02-2015 Episodic Other connective tissue disease (15 sources) Enthesopathy of hip region; Translations: [Other specified enthesopathies of unspecified lower limb, excluding foot] Onset: 07-18-2009 05-22-2010 Episodic Other connective tissue disease (15 sources) Lateral epicondylitis; Translations: [Lateral epicondylitis, unspecified elbow] Onset: 03-17-2012 03-17-2012 Episodic Other connective tissue disease (1 source) Fibromyalgia; Translations: [Fibromyalgia] Onset: 05-31-2022 Episodic Other lower respiratory disease (15 sources) Rib pain; Translations: [Pleurodynia] Onset: 03-27-2017 03-27-2017 Episodic Other non-traumatic joint disorders (20 sources) Soft tissue lesion of shoulder region; Translations: [Other specified joint disorders, unspecified shoulder] Onset: 06-10-2009 07-13-2009 Episodic Other screening for suspected conditions (not mental disorders or infectious disease) (12 sources) Patient encounter status; Translations: [Encounter for screening mammogram for malignant neoplasm of breast] Onset: 05-31-2022 Episodic Other skin disorders (15 sources) Hypertrophic scar; Translations: [Hypertrophic scar] Onset: 06-07-2015 06-07-2015 Episodic Residual codes; unclassified (15 sources) Family history of ischemic heart disease and other diseases of the circulatory system; Translations: [Family history of other cardiovascular diseases] Onset: 04-12-2008 05-05-2009 Episodic Residual codes; unclassified (16 sources) Family history of diabetes mellitus; Translations: [Family history of diabetes mellitus] Onset: 04-12-2008 05-05-2009 Episodic Residual codes; unclassified (15 sources) Insomnia with sleep apnea; Translations: [Insomnia, unspecified] Onset: 07-24-2013 07-24-2013 Episodic Residual codes; unclassified (2 sources) Family history of malignant neoplasm of breast; Translations: [Family history of malignant neoplasm of breast] Onset: 05-31-2022 Episodic Residual codes; unclassified (1 source) Family history of diabetes mellitus; Translations: [Family history of diabetes mellitus] Onset: 05-31-2022 Episodic Residual codes; unclassified (2 sources) Other specified health status; Translations: [Other specified health status] Onset: 05-31-2022 Episodic Spondylosis; intervertebral disc disorders; other back problems (20 sources) Low back pain; Translations: [Lumbago] Onset: 08-30-2010 12-29-2010 Episodic Unclassified (1 source) Contact with and (suspected) exposure to covid-19; Translations: [Contact with and (suspected) exposure to covid-19] Onset: 05-09-2023 Unclassified (1 source) Post covid-19 condition, unspecified; Translations: [Post covid-19 condition, unspecified] Onset: 03-27-2023 Unclassified (1 source) Other ventricular tachycardia (HCC); Translations: [Other ventricular tachycardia (HCC)] Onset: 02-14-2023 Results Test Name Value Interpretation Reference Range Facil ity Vital Signs Date Time Vital Sign Value Performing Clinician Lindsay finn 02-20-2022 09:53-0400 Body weight 102.06 kg NA Dixon PA-C Work Phone: [facility] 02-20-2022 09:53-0400 Diastolic blood pressure 80 mm[Hg] NA Dixon PA-C Work Phone: [facility] 02-20-2022 09:53-0400 Heart rate 104 /min NA Dixon PA-C Work Phone: [facility] 02-20-2022 09:53-0400 Respiratory rate 16 /min NA Dixon PA-C Work Phone: [facility] 02-20-2022 09:53-0400 SaO2% (BldA) [Mass fraction] 97 % NA Dixon PA-C Work Phone: [facility] 02-20-2022 09:53-0400 Systolic blood pressure 118 mm[Hg] NA Dixon PA-C Work Phone: [facility] 02-16-2022 10:27-0400 Body weight 102.06 kg NA Dixon PA-C Work Phone: [facility] 02-16-2022 10:27-0400 Diastolic blood pressure 68 mm[Hg] NA Dixon PA-C Work Phone: [facility] 02-16-2022 10:27-0400 Heart rate 99 /min NA Dixon PA-C Work Phone: [facility] 02-16-2022 10:27-0400 Respiratory rate 16 /min NA Dixon PA-C Work Phone: [facility] 02-16-2022 10:27-0400 SaO2% (BldA) [Mass fraction] 99 % NA Dixon PA-C Work Phone: [facility] 02-16-2022 10:27-0400 Systolic blood pressure 120 mm[Hg] NA Dixon PA-C Work Phone: [facility] 01-25-2022 09:30-0400 Body temperature 97 [degF] NA Dixon PA-C Work Phone: [facility] 01-25-2022 09:30-0400 Body weight 100.43 kg NA Dixon PA-C Work Phone: [facility] 01-25-2022 09:30-0400 Diastolic blood pressure 62 mm[Hg] NA Dixon PA-C Work Phone: [facility] 01-25-2022 09:30-0400 Heart rate 90 /min NA Dixon PA-C Work Phone: [facility] 01-25-2022 09:30-0400 SaO2% (BldA) [Mass fraction] 96 % NA Dixon PA-C Work Phone: [facility] 01-25-2022 09:30-0400 Systolic blood pressure 112 mm[Hg] NA Zack PA-C Work Phone: [facility] 12-18-2021 10:47-0400 Body temperature 96.3 [degF] Shayan Sheng MICROCHIP SPECIALIST.CHIEF OPERATIONS OFFICER Work Phone: [facility] 12-18-2021 10:47-0400 Body weight 97.34 kg Shayan Sheng MICROCHIP SPECIALIST.CHIEF OPERATIONS OFFICER Work Phone: [facility] 12-18-2021 10:47-0400 Diastolic blood pressure 90 mm[Hg] Shayan Sheng MICROCHIP SPECIALIST.CHIEF OPERATIONS OFFICER Work Phone: [facility] 12-18-2021 10:47-0400 Heart rate 93 /min Shayan Sheng MICROCHIP SPECIALIST.CHIEF OPERATIONS OFFICER Work Phone: [facility] 12-18-2021 10:47-0400 Respiratory rate 20 /min Shayan Sheng MICROCHIP SPECIALIST.CHIEF OPERATIONS OFFICER Work Phone: [facility] 12-18-2021 10:47-0400 SaO2% (BldA) [Mass fraction] 99 % Shayan Sheng MICROCHIP SPECIALIST.CHIEF OPERATIONS OFFICER Work Phone: [facility] 12-18-2021 10:47-0400 Systolic blood pressure 122 mm[Hg] Shayan Sheng MICROCHIP SPECIALIST.CHIEF OPERATIONS OFFICER Work Phone: [facility] 10-24-2021 09:31-0400 Body height 162.6 cm Gino Serrano MD Work Phone: [facility] 10-24-2021 09:31-0400 Body temperature 97.5 [degF] Gino Serrano MD Work Phone: [facility] 10-24-2021 09:31-0400 Body weight 98.88 kg Gino Serrano MD Work Phone: [facility] 10-24-2021 09:31-0400 Diastolic blood pressure 71 mm[Hg] Gino Serrano MD Work Phone: [facility] 10-24-2021 09:31-0400 Heart rate 71 /min Gino Serrano MD Work Phone: [facility] 10-24-2021 09:31-0400 Systolic blood pressure 125 mm[Hg] Gino Serrano MD Work Phone: [facility] Encounters Encounter Date Encounter Type Care Provider Facility Start: 05-09-2023 End: 05-09-2023 ambulatory HAKANKAMRYN GODINEZ [facility] Start: 04-24-2023 End: 04-25-2023 ambulatory HAKAN HERBERT [facility] Start: 04-17-2023 End: 04-18-2023 ambulatory HAKAN HERBERT [facility] Start: 04-05-2023 End: 04-05-2023 ambulatory HAKAN HERBERT [facility] Start: 03-27-2023 End: 03-28-2023 ambulatory HAKAN HERBERT [facility] Start: 02-27-2023 End: 02-27-2023 ambulatory HAKAN HERBERT [facility] Start: 02-21-2023 End: 02-22-2023 ambulatory PHY REFERRING Facility:B Start: 02-19-2023 End: 02-20-2023 ambulatory HAKANKAMRYN GODINEZ [facility] Start: 02-14-2023 End: 02-14-2023 ambulatory HAKAN HERBERT [facility] Start: 02-13-2023 End: 02-14-2023 ambulatory HAKAN HERBERT [facility] Start: 02-11-2023 End: 02-12-2023 ambulatory HAKAN HERBERT [facility] Start: 02-07-2023 End: 02-08-2023 ambulatory HAKAN HERBERT [facility] Start: 02-05-2023 End: 02-06-2023 ambulatory HAKAN HERBERT [facility] Start: 01-31-2023 End: 02-01-2023 ambulatory HAAKN HERBERT [facility] Start: 01-29-2023 End: 01-30-2023 ambulatory HAKAN HERBERT [facility] Start: 01-16-2023 ambulatory Nathan Lindquist MD Work Phone: Internal Medicine [facility] [place] Start: 01-14-2023 End: 01-15-2023 ambulatory HAKAN GODINEZ [facility] Start: 01-09-2023 End: 01-10-2023 ambulatory HAKAN GODINEZ [facility] Start: 01-07-2023 End: 01-08-2023 ambulatory HAKAN GODINEZ [facility] Start: 01-03-2023 End: 01-04-2023 ambulatory HAKAN GODINEZ [facility] Start: 01-01-2023 End: 01-02-2023 ambulatory HAKAN GODINEZ [facility] Start: 01-01-2023 End: 01-01-2023 ambulatory HAKAN GODINEZ [facility] Start: 12-24-2022 End: 12-25-2022 ambulatory HAKAN GODINEZ [facility] Start: 12-24-2022 End: 12-25-2022 ambulatory HAKAN GODINEZ [facility] Start: 12-17-2022 End: 12-18-2022 ambulatory HAKAN GODINEZ [facility] Start: 12-04-2022 End: 12-04-2022 ambulatory HAKAN GODINEZ [facility] Start: 11-28-2022 End: 11-28-2022 ambulatory HAKAN GODINEZ [facility] Start: 10-15-2022 Anette Adames APRN.CNP Work Phone: Rheumatology Procedures Date Procedure Procedure Detail Performing Clinician Start: 11-28-2022 Follow-up visit Follow-up CHRIS GODINEZ Start: 02-16-2022 INFLUENZA VACCINE QUADRIVALENT 6 MO - 64 YRS IM M Randall Dixon PA-C Work Phone: Start: 02-16-2022 PFIZER-BIONTECH COVI D-19 BIVALENT BOOSTER VACCINE, AGE 12+ YR M Randall Dixon PA-C Work Phone: Start: 01-25-2022 Adult depression scr eening assessment ROSEY Dixon PA-C Work Phone: Start: 03-27-2021 Colonoscopy Gino Melton MD Work Phone: Start: 12-13-2020 Mammography Gino Melton MD Work Phone: Start: 11-29-2020 Adult depression scr eening assessment Gino Serrano MD Work Phone: Plan of Treatment Date Care Activity Detail Author Start: 03-27-2031 Colonoscopy COLONOSCOPY [facility] Start: 03-27-2031 COLORECTAL CANCER SCREENING COLORECTAL CANCER SCREENING [facility] Start: 11-08-2027 Urine microalbumin profile DTA P,TDAP,TD (2 - Td or Tdap) [facility] Start: 02-01-2025 DIABETES SCREEN DIABETES SCREEN [facility] Start: 12-18-2024 DIABETES SCREEN DIABETES SCREEN [facility] Start: 08-06-2024 LIPID SCREEN LIPID SCREEN [facility] Start: 02-20-2023 ANNUAL PCP TEAM GENERAL OPERATIONS AGENT ARNALDO DISEASE VISIT ANNUAL PCP TEAM CHRONIC DISEASE VISIT [facility] Start: 02-16-2023 ANNUAL PCP TEAM GENERAL OPERATIONS AGENT ARNALDO DISEASE VISIT ANNUAL PCP TEAM CHRONIC DISEASE VISIT [facility] Start: 02-16-2023 HPV TESTING HPV TESTING [facility] Immunizations Immunization Date Immunization Notes Care Provider Fa steven 02-16-2022 COVID-19 booster vaccine, age 12+ yr, bivalent ([employer]) NA Dixon PA-C Work Phone: [facility] 02-16-2022 hepatitis B vaccine, adult dosage NA Dixon PA-C Work Phone: [facility] 02-16-2022 influenza, injectabl e, quadrivalent, contains preservative NA Dixon PA-C Work Phone: [facility] 02-16-2022 pneumococcal polysaccharide vaccine, 23 valent NA Dixon PA-C Work Phone: [facility] 02-16-2022 hepatitis B vaccine, unspecified formulation NA Dixon PA-C Work Phone: [facility] 06-16-2021 Influenza, injectabl e, Madin [place] Canine Kidney, preservative free, quadrivalent NA Dixon PA-C Work Phone: [facility] 03-17-2019 influenza, injectabl e, quadrivalent, contains preservative Gino Serrano MD Work Phone: [facility] 11-07-2017 tetanus toxoid, redu glenna diphtheria toxoid, and acellular pertussis vaccine, adsorbed NA Zack LEIJA Work Phone: [facility] 04-16-2017 influenza, injectabl e, quadrivalent, contains preservative Gino Serrano MD Work Phone: [facility] 04-18-2016 influenza, injectabl e, quadrivalent, contains preservative Gino Serrano MD Work Phone: [facility] 03-08-2015 influenza, seasonal, injectable Gino Serrano MD Work Phone: [facility] 02-24-2013 influenza virus vacc ine, unspecified formulation Gino Serrano MD Work Phone: [facility] 03-19-2012 influenza virus vacc ine, unspecified formulation Gino Serrano MD Work Phone: [facility] Work Phone: 04-30-2011 influenza virus vacc ine, unspecified formulation Gino Serrano MD Work Phone: [facility] 08-27-2010 pneumococcal polysaccharide vaccine, 23 valent Gino Serrano MD Work Phone: [facility] 05-11-2010 influenza virus vacc ine, unspecified formulation Gino Serrano MD Work Phone: [facility] 03-04-2009 influenza virus vacc ine, unspecified formulation Gino Serrano MD Work Phone: [facility] Work Phone: Payers Date Payer Category Payer Unknown [id number] 2019 Private Health Insurance [employer] C [employer] PPO [id number] 2019-Present [phone] [address] [place] [address] PPO [id number] 2019 Private Health Insurance [employer] C [employer] PPO [id number] 2019-Present [phone] [address] [place] [address] PPO [id number] 2019 Private Health Insurance [id number] 1975 Unknown [id number] Social History Date Type Detail Facility Start: 12-16-2014 End: 01-25-2022 Tobacco smoking status NHIS Ex-smoker [facility] End: 05-17-2008 History of tobacco use Current smoker [facility] Work Phone: End: 05-17-2008 History of tobacco use Cigarette Smoker [facility] Work Phone: Start: 07-11-2021 End: 02-20-2022 Alcohol intake Current drinker of alcohol (finding) [facility] Start: 08-07-2019 End: 01-25-2022 History SDOH Alcohol Frequency 2 [facility] Start: 08-07-2019 End: 01-25-2022 History SDOH Alcohol Std Drinks 1 [facility] Start: 11-12-2011 History SDOH Alcohol Comment rarely-every few months [facility] Start: 08-07-2019 End: 03-26-2020 History SDOH Social Connections Phone 5 [facility] Start: 08-07-2019 End: 01-25-2022 History SDOH Social Connections Living 6 [facility] Start: 08-07-2019 End: 01-25-2022 History SDOH Food Worry 3 [facility] Start: 03-26-2020 End: 01-25-2022 History SDOH Housing Places Lived 4 [facility] Start: 08-06-2019 Education 18 [facility] Start: 1975 Sex Assigned At Female C [facility] Start: 10-14-2021 End: 02-19-2022 Exposure to SARS-CoV-2 (event) Not sure [facility] Start: 12-16-2014 End: 06-12-2022 Cigarettes smoked current (pack per day) - Reported 0.1 [facility] Start: 12-16-2014 End: 01-25-2022 Tobacco use and exposure Smokeless tobacco non-user [facility] Start: 01-25-2022 History SDOH Physica l Activity DPW 0 [facility] Start: 01-25-2022 Tobacco Comment only 2 per day [facility] Start: 01-25-2022 End: 06-12-2022 Social connection and isolation panel [facility] Do you belong to any clubs or organizations such as synagogue groups, unions, fraternal or athletic groups, or school groups? Yes [facility] Are you now , , , , never or living with a partner? [facility] How often to you hav e a drink containing alcohol? 2-4 times a month [facility] How many standard dr inks containing alcohol do you have on a typical day? 1 or 2 [facility] How often do you hav e 6 or more drinks on 1 occasion? Never [facility] How hard is it for y ou to pay for the very basics like food, housing, medical care, and heating Somewhat hard [facility] Adult Depression Screening Assessment 6 [facility] Work Phone: Do you feel stress - tense, restless, nervous, or anxious, or unable to sleep at night because your mind is troubled all the time - these days [OSQ] Rather much [facility] (I/We) worried wheth er (my/our) food would run out before (I/we) got money to buy more. Sometimes true [facility] At any time in the p ast 12 months, were you homeless or living in group home [including now]? No [facility] Start: 12-25-2018 Gender identity Identifies as female gender (finding) [facility] Start: 12-25-2018 Sexual orientation Bisexual (finding ) [facility] Clinical Notes 07-21-2015 to 05-14-2023 Telephone Encounter - Matt Adames APRN.CNP - 10/16/2022 11:48 AM EDTTelephone Encounter - Lucía Batista MA - 10/16/2022 8:56 AM EDTTelephone Encounter - Khadra Seals MA - 07/24/2022 8:25 AM EST Note Date & Type Note Facility 05-14-2023 Note Addended by: Rena DESAI I. on: 05/14/2023 11:56 AM Modules accepted: Orders [facility] 05-09-2023 Note -Pending allergy evaluation [facility] 05-09-2023 Note - Pending Rheum re-e valuation in July 2023 - Continue hydroxychloroquine 300mg daily [facility] 05-09-2023 Note - Pending Rheum re-e valuation in July 2023 - Continue hydroxychloroquine 300mg daily [facility] 05-09-2023 Note - Symptoms uncontrol led - Stop Symbicort due to mouth sores - Add Singulair - If lack of improvement - may need to see pulmonology - Pending allergy evaluation [facility] 05-09-2023 Note Already on bisoprolo l 2.5 mg daily. I would recommend taking a full tablet of bisoprolol 5 mg the night before and 1 full tablet of bisoprolol 5 mg in the morning of the procedure. [facility] 05-01-2023 Note Referral faxed to Dr Reddy Lujan/ Dr. Zuleta to [phone] [facility] 04-17-2023 Note EEG/VIDEO REPORT DEMOGRAPHICS PATIENT: SELIN MURRY DATE OF SERVICE: APRIL 172022 DATE OF : [birth year] AGE: 47 GENDER: Female HANDEDNESS: RIGHT DICTATING PHYSICIAN: DR. Mejia REFERRING PHYSICIAN: Dr. Juarez EEG PARAMETER EEG TEST ?: [id number] EEG TEST TYPE: Outpatient routine 24-MINUTE EEG RECORDING. (10:27 AM-10:51 AM) BED SETTER: IRVING Becerra EEG T 21 Channel EEG using silver/silver chloride electrodes for data acquisition. EEG electrodes were positioned using the International 10-20 system. Montages used for EEG Data Analysis are I. Referential. II. Transverse. III. Bipolar. CLINICAL DATA EEG CLINICAL INDICATION: Memory change. NEUROLOGICAL HISTORY/DIAGNOSIS: 41-year-old woman but memory problems after [place] 2 years ago. 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 CURRENT PERTINENT MEDICATIONS: No information available MENTAL STATUS PRESENTATION: Awake drowsy. HR: 64 EEG INTERPRETATION BACKGROUND EEG ACTIVITY Frequency: Alpha rhythm; 9 Hz Frequency variability (CAPE): Absent Amplitude: Normal >20 ?V Amplitude variability: Not significant Occipitally prominent: Yes Frontally prominent: No A-P gradient with posterior rhythm dominance: Present Continuity of background rhythm: Continuous Rhythmicity: Present Synchronicity: Present Amplitude symmetry: Symmetric State changes: Present with normal stage II sleep transients. Evidence of skull defect with breach rhythm: Absent NORMAL EEG VARIANT WAVES: Absent ABNORMAL EEG WAVES: Absent INTERICTAL EPILEPTIFORM DISCHARGES: Absent ACTIVATION PROCEDURES EYE OPENING/CLOSING elicits transient bilateral frontotemporal attenuation of the EEG activity. HYPERVENTILATION is not performed. INTERMITTENT PHOTIC STIMULATION does not elicit an occipital photic driving response. ARTIFACTS: Not significant. EKG: Normal sinus rhythm. EEG-NEUROPHYSIOLOGICAL IMPRESSION/ EEG-CLINICAL CORRELATION This is a NORMAL AWAKE & SLEEP EEG. There are no abnormal EEG rhythms. There are no abnormal EEG wave-complexes. There are no focal/lateralizing EEG abnormalities. There are no ictal or interictal epileptiform discharges & no clinical seizures are seen on video. CANDI Mejia MD NEUROLOGIST [facility] 03-29-2023 Note -Pending allergy/imm unology evaluation [facility] 03-29-2023 Note - Pending psychology evaluation - Encouraged to call and schedule [facility] 03-29-2023 Note - Pending Neurology evaluation [facility] 03-29-2023 Note - Pending Neurology evaluation [facility] 03-29-2023 Note - Pending psychology evaluation - Encouraged to call and schedule [facility] 03-29-2023 Note - Pending psychology evaluation - Encouraged to call and schedule [facility] 03-29-2023 Note - Pending psychology evaluation - Encouraged to call and schedule [facility] 03-29-2023 Note - Pending Rheum re-e valuation in July 2023 - Continue hydroxychloroquine 300mg daily [facility] 03-29-2023 Note - Pending Rheum re-e valuation in July 2023 - Continue hydroxychloroquine 300mg daily [facility] 03-29-2023 Note - Somewhat improved with Symbicort - Continue Symbicort BID - Consider adjustment of medication depending on response - Pending allergy/immunology evaluation [facility] 02-28-2023 Note - Pending allergy evaluation [facility] 02-28-2023 Note - Symptoms uncontrol led - Support given - Pending Psychiatry/Psychology evaluation - Gave number to call and schedule [facility] 02-28-2023 Note - Symptoms uncontrol led - Support given - Pending Psychiatry/Psychology evaluation - Gave number to call and schedule [facility] 02-28-2023 Note - Symptoms uncontrol led - Pending Neurology evaluation - Gave number to call and schedule [facility] 02-28-2023 Note - Symptoms uncontrol led - Pending Neurology evaluation - Gave number to call and schedule [facility] 02-28-2023 Note - Symptoms uncontrol led - Continue hydroxychloroquine 300mg daily - refill sent - Pending repeat Rheum evaluation - gave number to call and schedule [facility] 02-28-2023 Note - Symptoms uncontrol led - Continue hydroxychloroquine 300mg daily - refill sent - Pending repeat Rheum evaluation - gave number to call and schedule [facility] 01-16-2023 Note Patient Outreach (IN [facility]) SELIN MURRY ([id number]) 1975 F Date Time Provider Department 01/16/23 NATHAN LINDQUIST During your visit today, we recorded the following information about you: Allergies As of Date: 01/16/2023 Noted Allergy Reaction FENTANYL 12/14/2020 14 - Other: See Comments Comments: Full dosage, made pt stop breathing. Body rash 2 days after administration 11/13/2020 ELAVIL (AMITRIPTYLINE HCL) 03/30/2014 1 - Mental Status Change Comments: Suicidal Thoughts ACETAMINOPHEN 10/04/2020 2 - Rash IV CONTRAST (IODINE) 12/16/2020 2 - Rash Comments: Body rash 2 days after administration SULFAMETHOXAZOLE 10/04/2020 2 - Rash TORADOL (KETOROLAC) 12/16/2020 2 - Rash Comments: Body rash 2 days after administration TRIMETHOPRIM 10/04/2020 2 - Rash BACTRIM (SULFAMETHOXAZOLE-TRIMETH* 008 14 - Other: See Comments Comments: Muscle aches CIPROFLOXACIN 04/12/2008 10 - Anaphylaxis Comments: Anything related to Cipro family causes anaphylaxis. CLINDAMYCIN 12/30/2014 2 - Rash Comments: delayed type KEFLEX (CEPHALEXIN) 12/20/2014 7 - Swelling LATEX 07/05/2008 2 - Rash 14 - Other: See Comments Comments: Skin to peel LIDOCAINE 11/05/2014 2 - Rash MORPHINE 04/12/2008 4 - Hives OXAPROZIN 11/06/2010 2 - Rash PENICILLINS 04/12/2008 2 - Rash 8 - GI Upset 9 - Itching PERCOCET (OXYCODONE-ACETAMINOPHEN)04/12/20 08 2 - Rash ULTRAM (TRAMADOL HCL) 08/04/2010 9 - Itching Comments: headaches Date Reviewed: 02/20/2022 Reviewed by: Joanne Garnica LPN - Fully Assessed Visit Diagnosis:Encounter for screening mammogram for breast cancer [Z12.31] Order(s):[facility] SCREENING [[id number]] Order #: [id number] FUTURE Prescriptions as of 01/21/2023 - hydrOXYchloroQUINE (PLAQUENIL) 200 mg tablet take 1 AND 1/2 tablets by mouth once daily - Milnacipran (SAVELLA) 25 mg tab Weaning: alternate 50mg (prior rx) with 25mg every other day for a week, then 25mg daily x 1 week then alternate 25mg every other day x1 week and then off. - Milnacipran (SAVELLA) 50 mg tab Take 1 tablet by mouth twice daily. - triamcinolone acetonide (KENALOG) 0.1 % cream Apply 1 application to affected area three times daily. Apply sparingly to area for rash/itching. - levothyroxine (SYNTHROID) 137 mcg tablet Take 1 tablet by mouth once daily. - magnesium sulfate 4.06 meq/ml liqd Take 10 mg/kg/dose by mouth. - ferrous sulfate 325 mg (65 mg iron) tablet Take 325 mg by mouth daily with breakfast. - acetaminophen (TYLENOL) 325 mg tablet Take 2 tablets by mouth every 4 hours as needed for Pain. - cholecalciferol (VITAMIN D3) 5,000 unit tab Take 5,000 Units by mouth once daily. Meds Comments as of 12/14/2020: Takes OTC Magnesium, Iron and Vegan Vitamin B12. Problem List As Of Date 01/16/2023 Noted Resolved Systemic lupus erythematosus [M32.9] 04/12/2008 09/14/2010 Hypothyroidism [E03.9] 04/12/2008 Tobacco use disorder [F17.200] 04/12/2008 11/12/2011 Obesity, Class III, BMI 40-49.9 (morbid obesity*04/12/2008 Family History of Other Cardiovascular Diseases*04/12/2008 Family History of Diabetes Mellitus [Z83.3] 04/12/2008 Routine Gynecological Examination [Z01.419] 04/12/2008 03/17/2015 Class: Chronic Unspecified Disorders of Bursae and Tendons in *06/10/2009 Other Affections of Shoulder Region, not Elsewh*06/10/2009 Enthesopathy of hip region [M76.899] 07/18/2009 Tarsal tunnel syndrome [G57.50] 06/01/2010 Lumbosacral spondylosis without myelopathy [M47*08/30/2010 Lumbago [M54.50] 08/30/2010 Sjogren's syndrome [M35.00] 09/14/2010 Sacroiliac joint pain [M53.3] 05/25/2011 SI (sacroiliac) joint dysfunction [M53.3] 05/25/2011 Headaches, cluster [G44.009] 08/24/2011 Psychological factors affecting medical conditi*08/24/2011 Radial nerve entrapment [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] 08/24/2011 Lupus erythematosus [L93.0] Anxiety disorder [F41.9] Lateral epicondylitis of elbow [M77.10] 03/17/2012 Ulnar neuropathy [G56.20] 03/17/2012 Obstructive sleep apnea [G47.33] 07/24/2013 ADD (attention deficit disorder) [F98.8] GONZÁLEZ on CPAP [G47.33] 04/02/2013 GONZÁLEZ (obstructive sleep apnea) [G47.33] 04/06/2013 04/06/2013 Arthritis [M19.90] Insomnia with sleep apnea [G47.00, G47.30] 07/24/2013 Diarrhea [R19.7] 04/18/2016 Abdominal pain, other specified site [R10.9] 04/18/2016 Open wound of chest wall with complication [S21*11/30/2014 04/18/2016 Open wound of right breast [S21.001A] 11/30/2014 04/18/2016 Cellulitis of breast [N61.0] 12/30/2014 04/18/2016 Streptococcal infection(041.00) [A49.1] 12/30/2014 04/18/2016 Pseudomonas infection [A49.8] 12/30/2014 04/18/2016 Dermatitis due to drug reaction [L27.0] 12/30/2014 04/18/2016 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 [facility] 01-02-2023 Note - Continue hydroxych loroquine 300mg daily - Pending Rheum evaluation [facility] 01-02-2023 Note - Continue hydroxych loroquine 300mg daily - Pending Rheum evaluation [facility] 01-02-2023 Note - Elevated IgE - def inite allergic component with multiple medication issues - still possibility of mast cell activation syndrome - Referral to allergy [facility] 01-02-2023 Note - Symptoms uncontrol led - Recommend evaluation by Behavioral Health - would benefit from trauma therapy [facility] 01-02-2023 Note - Symptoms uncontrol led - Recommend evaluation by Behavioral Health - would benefit from trauma therapy [facility] 01-02-2023 Note - Symptoms worsening per patient - Referral to Neurology [facility] 11-30-2022 Note -Referral to rheumat ology -Continue hydroxychloroquine 300 mg daily [facility] 11-30-2022 Note -Referral to rheumat ology -Continue hydroxychloroquine 300 mg daily [facility] 11-30-2022 Note -Support given -Consider counseling/therapy plus or minus medications depending on patient desire-though agree with patient's concern of multiple medication allergies/effects) [facility] 11-30-2022 Note -Support given -Consider counseling/therapy plus or minus medications depending on patient desire-though agree with patient's concern of multiple medication allergies/effects) [facility] 11-30-2022 Note -Symptoms are not co ntrolled -Referral to rheumatology -Could consider evaluation for low-dose naltrexone given post COVID concerns -Referral for aquatic therapy [facility] 11-30-2022 Note -Symptoms are not co ntrolled -Referral to rheumatology -Could consider evaluation for low-dose naltrexone given post COVID concerns -Consider evaluation for EDS with specific provider [facility] 11-30-2022 Note -Symptoms are not co ntrolled -Referral to rheumatology -Could consider evaluation for low-dose naltrexone given post COVID concerns [facility] 11-30-2022 Note - Uncertain etiology -Recommend repeat cardiac event monitor -Consider electrophysiology referral given possibility for orthostatic intolerance versus POTS [facility] 10-16-2022 Miscellaneous Notes The following approved medication requests have been transmitted electronically. Requested Prescriptions Signed Prescriptions Disp Refills hydrOXYchloroQUINE (PLAQUENIL) 200 mg tablet 135 tablet 1 Sig: take 1 AND 1/2 tablets by mouth once daily Authorizing Provider: MATT ADAMES APRN.CHIEF OPERATIONS OFFICER Patient has been identified by name and date of : Yes RX INSTRUCTIONS: Patient aware RX will be sent to pharmacy. No need to notify patient. PLQ eye exam done on 06/07/2022 at [facility]. No evidence of PLQ toxicity. LAST APPOINTMENT: 10/24/2021 UPCOMING APPOINTMENT: 11/27/2022 LABS: Hemoglobin (g/dL) Date Value 02/01/2022 15.0 04/20/2021 13.4 Hematocrit (%) Date Value 02/01/2022 45.2 04/20/2021 40.0 WBC (k/uL) Date Value 02/01/2022 5.69 04/20/2021 5.70 Platelet Count (k/uL) Date Value 02/01/2022 382 04/20/2021 343 AST Date Value Ref Range Status 02/01/2022 34 13 - 35 U/L Final ALT Date Value Ref Range Status 02/01/2022 26 7 - 38 U/L Final Creatinine Date Value Ref Range Status 02/01/2022 0.89 0.58 - 0.96 mg/dL Final No results found for: URICACID Lucía Batista MA documented in this encounter [facility] 07-24-2022 Miscellaneous Notes The following approved medication requests have been transmitted electronically. Requested Prescriptions Signed Prescriptions Disp Refills hydrOXYchloroQUINE (PLAQUENIL) 200 mg tablet 135 tablet 0 Sig: Take 1.5 tablets by mouth once daily. Authorizing Provider: MATT ADAMES APRN.JOANNA Patient has been identified by name and date of : Yes RX INSTRUCTIONS: Patient aware RX will be sent to pharmacy. No need to notify patient. PLQ eye exam done on 05/18/2021 at [facility]. No evidence of PLQ toxicity. Spoke with patient. Patient completed PLQ eye exam last month. Patient will call her eye doctor to have report fax to our office. LAST APPOINTMENT: 10/24/2021 UPCOMING APPOINTMENT: 11/27/2022 LABS: Hemoglobin (g/dL) Date Value 02/01/2022 15.0 04/20/2021 13.4 Hematocrit (%) Date Value 02/01/2022 45.2 04/20/2021 40.0 WBC (k/uL) Date Value 02/01/2022 5.69 04/20/2021 5.70 Platelet Count (k/uL) Date Value 02/01/2022 382 04/20/2021 343 AST Date Value Ref Range Status 02/01/2022 34 13 - 35 U/L Final ALT Date Value Ref Range Status 02/01/2022 26 7 - 38 U/L Final Creatinine Date Value Ref Range Status 02/01/2022 0.89 0.58 - 0.96 mg/dL Final No results found for: URICACID Khadra Seals MA documented in this encounter [facility] 05-31-2022 Note [facility] [phone] [email or web address] Locations in [facility] and [facility] 03-19-2022 Miscellaneous Notes Patient returned call and given provider's message below with verbalized understanding. Left message for patient to return call. Franchesca Hammond Ma Anything I prescribe is likely to do the same. Stop it and see how she feels. TC to pt, notified of provider response. Pt asking if provider will be replacing Savella with anything? She states Savella was a replacement for Cymbalta. She noted excessive sweating with Cymbalta but did find it helpful. Not sure that she wants to deal with the excessive sweating though. Ori Silva LPN Wean over 3 weeks as directed on rx The following approved medication requests have been transmitted electronically. Requested Prescriptions Signed Prescriptions Disp Refills Milnacipran (SAVELLA) 25 mg tab 15 tablet 0 Sig: Weaning: alternate 50mg (prior rx) with 25mg every other day for a week, then 25mg daily x 1 week then alternate 25mg every other day x1 week and then off. Authorizing Provider: Cait DIXON PA-C Pt called in and reports that they wants to know how to wean off of Milnacipran. Reports they are sick all the time, stomach always hurts, and barely eats. Doesn't think it's helping the symptoms, or very little. Please call and advise Pt. documented in this encounter [facility] 02-26-2022 Miscellaneous Notes The following approved medication requests have been transmitted electronically. Requested Prescriptions Signed Prescriptions Disp Refills Milnacipran (SAVELLA) 50 mg tab 60 tablet 5 Sig: Take 1 tablet by mouth twice daily. Authorizing Provider: Cait DIXON Refused Prescriptions Disp Refills Milnacipran (SAVELLA DOSE-PACK) 12.5 mg (5)-25 mg(8)-50 mg(42) DsPk 42 tablet 0 Sig: Take 1 Package by mouth as directed. Refused By: Cait DIXON Reason for Refusal: A Refill not appropriate Please see if still taking reglan (metoclopramide) 02/28/2021 dispense as there can be an interaction with the medications. Cait Dixon PA-C Last Rx: 01/25/22 #42 w/0. Last OV: 02/20/22 Next OV: 04/27/22 Christa Cronin Ma documented in this encounter [facility] 02-20-2022 Note HNO ID: [id number] Author: Cait Dixon PA-C Service: ? Author Type: Physician Storage Garage Attendant Type: Progress Notes Filed: 02/20/2022 7:50 PM Note Text: 46 year old female with c/o pink to red spots where injections following immunization injections. Started in one spot which progressively got larger. Then additional spots appeared in the area. Identifies painful and hot. No fever or chills. HISTORIES FAMILY HISTORY Problem Relation Age of Onset Ischemic Heart Disease Maternal Grandmother Diabetes Maternal Grandmother Hypertension Maternal Grandmother Seizures Maternal Grandmother Stroke Maternal Grandmother Cataract Maternal Grandmother Glaucoma Maternal Grandmother Ischemic Heart Disease Maternal Grandfather 40's Diabetes Maternal Grandfather Psychiatry Paternal Grandfather severe psychosis, details unknown, multiple hospitalizations Hypertension Mother Arthritis Other none Colon Cancer Maternal Uncle none PAST MEDICAL HISTORY Diagnosis Date Abdominal pain, other specified site ADD (attention deficit disorder) Anxiety disorder Arthritis 2013 right hip Diarrhea Fibromyalgia Hypothyroid Lumbago Lupus erythematosus Obstructive sleep apnea Sjogren's syndrome (HCC) PAST SURGICAL HISTORY Procedure Laterality Date COLONOSCOPY AND POLYPECTOMY 01/06/2014 hyperplastic sessile polyp repeat in 10 years age 49 COLONOSCOPY FLX DX W/COLLJ SPEC WHEN PFRMD 03/27/2021 ENDOMETRIAL ABLTJ THERMAL W/O HYSTEROSCOPIC GUID 08/19/2011 ESOPHAGOGASTRODUODENOSCOPY TRANSORAL DIAGNOSTIC 07/21/2015 EGD (MAC) EXPLORATORY OF ABDOMEN 2003 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 Padilla; [address], DONE PERCUTANEOUSLY PAST SURGICAL HISTORY OF lumbar spine injections PICC LINE INSERT/CONSULT 12/23/2014 REDUCTION OF LARGE BREAST Bilateral 11/15/2014 TONSILLECTOMY PRIMARY/SECONDARY tonsils Social History Tobacco Use Smoking status: Former Packs/day: 0.10 Years: 10.00 Pack years: 1.00 Types: Cigarettes Quit date: 05/17/2008 Years since quittin.7 Smokeless tobacco: Never Tobacco comments: only 2 per day Vaping Use Vaping Use: Never used Substance Use Topics Alcohol use: Yes Comment: rarely-every few months Drug use: Yes Types: Marijuana ACTIVE PROBLEM LIST Hypothyroidism Obesity, Class Iii, Bmi 40-49.9 (Morbid Obesity) (Hcc) Family History of Other Cardiovascular Diseases(v17.49) Family History of Diabetes Mellitus Disorders of Bursae and Tendons in Shoulder Region, Unspecified Other Affections of Shoulder Region, Not Elsewhere Classified Enthesopathy of Hip Region Tarsal Tunnel Syndrome Lumbosacral Spondylosis Without Myelopathy Lumbago Sjogren's Syndrome (Hcc) Sacroiliac Joint Pain Si (Sacroiliac) Joint Dysfunction Headaches, Cluster Psychological Factors Affecting Medical Condition Radial Nerve Entrapment Lupus Erythematosus Anxiety Disorder Lateral Epicondylitis of Elbow Ulnar Neuropathy Add (Attention Deficit Disorder) González On Cpap Arthritis Insomnia With Sleep Apnea Hypertrophic Cicatrix Fibromyalgia Gerd (Gastroesophageal Reflux Disease) Long-Term Use of Plaquenil Attention Deficit Disorder Rib Pain On Right Side 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 Apply sparingly to area for rash/itching. 15 g 0 DULoxetine (CYMBALTA) 20 mg capsule 2 caps daily x 1 week, then 1 caps daily x 1 week (weaning) 21 capsule 0 Milnacipran (SAVELLA DOSE-PACK) 12.5 mg (5)-25 mg(8)-50 mg(42) DsPk Take 1 Package by mouth as directed. 42 tablet 0 levothyroxine (SYNTHROID) 137 mcg tablet Take 1 tablet by mouth once daily. 35 tablet 5 hydrOXYchloroQUINE (PLAQUENIL) 200 mg tablet Take 1.5 tablets by mouth once daily. 135 tablet 1 magnesium sulfate 4.06 meq/ml liqd Take 10 mg/kg/dose by mouth. ferrous sulfate 325 mg (65 mg iron) tablet Take 325 mg by mouth daily with breakfast. acetaminophen (TYLENOL) 325 mg tablet Take 2 tablets by mouth every 4 hours as needed for Pain. 50 tablet 0 cholecalciferol (VITAMIN D3) 5,000 unit tab Take 5,000 Units by mouth once daily. Current Facility-Administered Medications Medication Dose Route Frequency Provider Last Rate Last Admin diphenhydrAMINE 50 mg injection (BENADRYL) 50 mg INTRAVENOUS PRN Nathan Lindquist MD EPINEPHrine 1 mg/mL (1 mL) 0.3 mg injection 0.3 mg INTRAMUSCULAR PRN Nathan Lindquist MD hydrocortisone sodium succinate (PF) 100 mg in D5W 50 mL (Solu-CORTEF) 100 mg INTRAVENOUS PRN Nathan Lindquist MD metoclopramide HCl 10 mg injection (REGLAN) 10 mg INTRAVENOUS PRN Nathan Lindquist MD metoclopramide HCl 10 mg tab(s) (REGLAN) 10 mg ORAL PRN Nathan Lindquist MD ondansetron (PF) 4 mg injection (ZO (more content not included)... [facility] 02-20-2022 Instructions Cait Dixon PA-C - 02/20/2022 10:08 AM EDT Moist heat and light massage to area until improves. documented in this encounter [facility] 02-20-2022 History of Present illness Narrative 46 year old female with c/o pink to red spots where injections following immunization injections. Started in one spot which progressively got larger. Then additional spots appeared in the area. Identifies painful and hot. No fever or chills. HISTORIES FAMILY HISTORY Problem Relation Age of Onset Ischemic Heart Disease Maternal Grandmother Diabetes Maternal Grandmother Hypertension Maternal Grandmother Seizures Maternal Grandmother Stroke Maternal Grandmother Cataract Maternal Grandmother Glaucoma Maternal Grandmother Ischemic Heart Disease Maternal Grandfather 40's Diabetes Maternal Grandfather Psychiatry Paternal Grandfather severe psychosis, details unknown, multiple hospitalizations Hypertension Mother Arthritis Other none Colon Cancer Maternal Uncle none PAST MEDICAL HISTORY Diagnosis Date Abdominal pain, other specified site ADD (attention deficit disorder) Anxiety disorder Arthritis 2012 right hip Diarrhea Fibromyalgia Hypothyroid Lumbago Lupus erythematosus Obstructive sleep apnea Sjogren's syndrome (HCC) PAST SURGICAL HISTORY Procedure Laterality Date COLONOSCOPY & POLYPECTOMY 01/06/2014 hyperplastic sessile polyp repeat in 10 years age 49 COLONOSCOPY FLX DX W/COLLJ SPEC WHEN PFRMD 03/27/2021 ENDOMETRIAL ABLTJ THERMAL W/O HYSTEROSCOPIC GUID 08/19/2011 ESOPHAGOGASTRODUODENOSCOPY TRANSORAL DIAGNOSTIC 07/21/2015 EGD (MAC) EXPLORATORY OF ABDOMEN 2004 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 Padilla; [address], DONE PERCUTANEOUSLY PAST SURGICAL HISTORY OF lumbar spine injections PICC LINE INSERT/CONSULT 12/23/2014 REDUCTION OF LARGE BREAST Bilateral 11/15/2014 TONSILLECTOMY PRIMARY/SECONDARY <AGE 11 age 4 tonsils Social History Tobacco Use Smoking status: Former Packs/day: 0.10 Years: 10.00 Pack years: 1.00 Types: Cigarettes Quit date: 05/17/2008 Years since quittin.7 Smokeless tobacco: Never Tobacco comments: only 2 per day Vaping Use Vaping Use: Never used Substance Use Topics Alcohol use: Yes Comment: rarely-every few months Drug use: Yes Types: Marijuana ACTIVE PROBLEM LIST Hypothyroidism Obesity, Class Iii, Bmi 40-49.9 (Morbid Obesity) ([facility]) Family History of Other Cardiovascular Diseases(v17.49) Family History of Diabetes Mellitus Disorders of Bursae and Tendons in Shoulder Region, Unspecified Other Affections of Shoulder Region, Not Elsewhere Classified Enthesopathy of Hip Region Tarsal Tunnel Syndrome Lumbosacral Spondylosis Without Myelopathy Lumbago Sjogren's Syndrome ([facility]) Sacroiliac Joint Pain Si (Sacroiliac) Joint Dysfunction Headaches, Cluster Psychological Factors Affecting Medical Condition Radial Nerve Entrapment Lupus Erythematosus Anxiety Disorder Lateral Epicondylitis of Elbow Ulnar Neuropathy Add (Attention Deficit Disorder) González On Cpap Arthritis Insomnia With Sleep Apnea Hypertrophic Cicatrix Fibromyalgia Gerd (Gastroesophageal Reflux Disease) Long-Term Use of Plaquenil Attention Deficit Disorder Rib Pain On Right Side 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 Apply sparingly to area for rash/itching. 15 g 0 DULoxetine (CYMBALTA) 20 mg capsule 2 caps daily x 1 week, then 1 caps daily x 1 week (weaning) 21 capsule 0 Milnacipran (SAVELLA DOSE-PACK) 12.5 mg (5)-25 mg(8)-50 mg(42) DsPk Take 1 Package by mouth as directed. 42 tablet 0 levothyroxine (SYNTHROID) 137 mcg tablet Take 1 tablet by mouth once daily. 35 tablet 5 hydrOXYchloroQUINE (PLAQUENIL) 200 mg tablet Take 1.5 tablets by mouth once daily. 135 tablet 1 magnesium sulfate 4.06 meq/ml liqd Take 10 mg/kg/dose by mouth. ferrous sulfate 325 mg (65 mg iron) tablet Take 325 mg by mouth daily with breakfast. acetaminophen (TYLENOL) 325 mg tablet Take 2 tablets by mouth every 4 hours as needed for Pain. 50 tablet 0 cholecalciferol (VITAMIN D3) 5,000 unit tab Take 5,000 Units by mouth once daily. Current Facility-Administered Medications Medication Dose Route Frequency Provider Last Rate Last Admin diphenhydrAMINE 50 mg injection (BENADRYL) 50 mg INTRAVENOUS PRN Nathan Lindquist MD EPINEPHrine 1 mg/mL (1 mL) 0.3 mg injection 0.3 mg INTRAMUSCULAR PRN Nathan Lindquist MD hydrocortisone sodium succinate (PF) 100 mg in D5W 50 mL (Solu-CORTEF) 100 mg INTRAVENOUS PRN Nathan Lindquist MD metoclopramide HCl 10 mg injection (REGLAN) 10 mg INTRAVENOUS PRN Nathan Lindquist MD metoclopramide HCl 10 mg tab(s) (REGLAN) 10 mg ORAL PRN Nathan Lindquist MD ondansetron (PF) 4 mg injection (ZOFRAN) 4 mg INTRAVENOUS PRN Nathan Lindquist MD ondansetron 4 mg tab(s) (ZOFRAN) 4 mg ORAL PRN Nathan Lindquist MD prochlorperazine 5 mg injection (COMPAZINE) 5 mg INTRAVENOUS PRN Nathan Lindquist MD prochlorperazine 5 mg tab(s) (COMPAZINE) 5 mg ORAL PRN Nathan Lindquist MD HIV SCREENING Never done SHINGRIX VACCINE(1 of 2) Never done MAMMOGRAM due on 12/13/2021 HEPATITIS B(2 of 3 - 3-dose series) due on 03/16/2022 EXAM: BP 118/80 Pulse 104 Resp 16 Wt 102.1 kg (225 lb) LMP 04/23/2019 SpO2 97% BMI 38.62 kg/m Pleasant overweight adult woman in no acute distress. Alert and oriented all spheres. Normal affect and cognition. Speech normal. No deficits to learning or comprehension. Skin warm, dry, pink to lips and nailbeds. Normal turgor. There are 6 areas circled with a pen frankie with light pink macules. No induration or streaks, non-tender. She identifies the largest as a site of one of the immunizations over the left upper biceps. This is 5cm circular macule. Others are in the upper shoulder, 5 circular pink macules 2-3cm in diameter. None in the area of the deltoid for IM injection. None of the areas have injection adan and I suspect these were not the areas of injection. No axillary or epitrochlear lymphadenopathy. Respirations regular and unlabored. Extrem: no clubbing or cyanosis. Edema: none. Extremities are warm and pink with prompt capillary refill. ASSESSMENT/PLAN: 1. Vaccine reaction, initial encounter - ICD9: E949.9, ICD10: T50.Z95A Gradually improving. Not painful. Monitor and report is any worsening, otherwise persistent longer than 7-10days. She understands. F/u as scheduled Cait Dixon PA-C documented in this encounter [facility] 02-16-2022 Note HNO ID: [id number] Author: Cait Dixon PA-C Service: ? Author Type: Physician Storage Garage Attendant Type: Progress Notes Filed: 02/16/2022 4:16 PM Note Text: 46 year old female with c/o 4-week medication follow-up milnacipran titration From 01/25/2022 visit: Feels mental health issues out of balance. 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 Feels like fighting body which just doesn't want to move, fighting her head to do anything. Feels Savella titration hasn't changed No difference in mood or attention. Increased nausea. No noticeable change in pain with fibromyalgia Wasn't able to start the medication until 2.5 weeks ago, still in titration Notes rash, itching, patchy on upper thigh HISTORIES FAMILY HISTORY Problem Relation Age of Onset Ischemic Heart Disease Maternal Grandmother Diabetes Maternal Grandmother Hypertension Maternal Grandmother Seizures Maternal Grandmother Stroke Maternal Grandmother Cataract Maternal Grandmother Glaucoma Maternal Grandmother Ischemic Heart Disease Maternal Grandfather 40's Diabetes Maternal Grandfather Psychiatry Paternal Grandfather severe psychosis, details unknown, multiple hospitalizations Hypertension Mother Arthritis Other none Colon Cancer Maternal Uncle none PAST MEDICAL HISTORY Diagnosis Date Abdominal pain, other specified site ADD (attention deficit disorder) Anxiety disorder Arthritis 2012 right hip Diarrhea Fibromyalgia Hypothyroid Lumbago Lupus erythematosus Obstructive sleep apnea Sjogren's syndrome (HCC) PAST SURGICAL HISTORY Procedure Laterality Date COLONOSCOPY AND POLYPECTOMY 01/06/2014 hyperplastic sessile polyp repeat in 10 years age 49 COLONOSCOPY FLX DX W/COLLJ SPEC WHEN PFRMD 03/27/2021 ENDOMETRIAL ABLTJ THERMAL W/O HYSTEROSCOPIC GUID 08/19/2011 ESOPHAGOGASTRODUODENOSCOPY TRANSORAL DIAGNOSTIC 07/21/2015 EGD (MAC) EXPLORATORY OF ABDOMEN 2004 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 Padilla; [address], DONE PERCUTANEOUSLY PAST SURGICAL HISTORY OF lumbar spine injections PICC LINE INSERT/CONSULT 12/23/2014 REDUCTION OF LARGE BREAST Bilateral 11/15/2014 TONSILLECTOMY PRIMARY/SECONDARY tonsils Social History Tobacco Use Smoking status: Former Packs/day: 0.10 Years: 10.00 Pack years: 1.00 Types: Cigarettes Quit date: 05/17/2008 Years since quittin.7 Smokeless tobacco: Never Tobacco comments: only 2 per day Vaping Use Vaping Use: Never used Substance Use Topics Alcohol use: Yes Comment: rarely-every few months Drug use: Yes Types: Marijuana ACTIVE PROBLEM LIST Hypothyroidism Obesity, Class Iii, Bmi 40-49.9 (Morbid Obesity) ([facility]) Family History of Other Cardiovascular Diseases(v17.49) Family History of Diabetes Mellitus Disorders of Bursae and Tendons in Shoulder Region, Unspecified Other Affections of Shoulder Region, Not Elsewhere Classified Enthesopathy of Hip Region Tarsal Tunnel Syndrome Lumbosacral Spondylosis Without Myelopathy Lumbago Sjogren's Syndrome ([facility]) Sacroiliac Joint Pain Si (Sacroiliac) Joint Dysfunction Headaches, Cluster Psychological Factors Affecting Medical Condition Radial Nerve Entrapment Lupus Erythematosus Anxiety Disorder Lateral Epicondylitis of Elbow Ulnar Neuropathy Add (Attention Deficit Disorder) González On Cpap Arthritis Insomnia With Sleep Apnea Hypertrophic Cicatrix Fibromyalgia Gerd (Gastroesophageal Reflux Disease) Long-Term Use of Plaquenil Attention Deficit Disorder Rib Pain On Right Side 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 Apply sparingly to area for rash/itching. 15 g 0 DULoxetine (CYMBALTA) 20 mg capsule 2 caps daily x 1 week, then 1 caps daily x 1 week (weaning) 21 capsule 0 Milnacipran (SAVELLA DOSE-PACK) 12.5 mg (5)-25 mg(8)-50 mg(42) DsPk Take 1 Package by mouth as directed. 42 tablet 0 levothyroxine (SYNTHROID) 137 mcg tablet Take 1 tablet by mouth once daily. 35 tablet 5 hydrOXYchloroQUINE (PLAQUENIL) 200 mg tablet Take 1.5 tablets by mouth once daily. 135 tablet 1 magnesium sulfate 4.06 meq/ml liqd Take 10 mg/kg/dose by mouth. ferrous sulfate 325 mg (65 mg iron) tablet Take 325 mg by mouth daily with breakfast. acetaminophen (TYLENOL) 325 mg tablet Take 2 tablets by mouth every 4 hours as needed for Pain. 50 tablet 0 cholecalciferol (VITAMIN D3) 5,000 unit tab Take 5,000 Units by mouth once daily. Current Facility-Administered Medications Medication Dose Route Frequency Provider Last Rate Last Admin diphenhydrAMINE 50 mg injection (BENADRYL) 50 mg INTRAVENOUS PRN Nathan Lindquist MD EPINEPHrine 1 mg/mL (1 mL) 0.3 mg injection 0.3 mg INTRAMUSCU (more content not included)... [facility] 02-16-2022 History of Present illness Narrative 46 year old female with c/o 4-week medication follow-up milnacipran titration From 01/25/2022 visit: Feels mental health issues out of balance. 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 Feels like fighting body which just doesn't want to move, fighting her head to do anything. Feels Savella titration hasn't changed No difference in mood or attention. Increased nausea. No noticeable change in pain with fibromyalgia Wasn't able to start the medication until 2.5 weeks ago, still in titration Notes rash, itching, patchy on upper thigh HISTORIES FAMILY HISTORY Problem Relation Age of Onset Ischemic Heart Disease Maternal Grandmother Diabetes Maternal Grandmother Hypertension Maternal Grandmother Seizures Maternal Grandmother Stroke Maternal Grandmother Cataract Maternal Grandmother Glaucoma Maternal Grandmother Ischemic Heart Disease Maternal Grandfather 40's Diabetes Maternal Grandfather Psychiatry Paternal Grandfather severe psychosis, details unknown, multiple hospitalizations Hypertension Mother Arthritis Other none Colon Cancer Maternal Uncle none PAST MEDICAL HISTORY Diagnosis Date Abdominal pain, other specified site ADD (attention deficit disorder) Anxiety disorder Arthritis 2012 right hip Diarrhea Fibromyalgia Hypothyroid Lumbago Lupus erythematosus Obstructive sleep apnea Sjogren's syndrome (HCC) PAST SURGICAL HISTORY Procedure Laterality Date COLONOSCOPY & POLYPECTOMY 01/06/2014 hyperplastic sessile polyp repeat in 10 years age 49 COLONOSCOPY FLX DX W/COLLJ SPEC WHEN PFRMD 03/27/2021 ENDOMETRIAL ABLTJ THERMAL W/O HYSTEROSCOPIC GUID 08/19/2011 ESOPHAGOGASTRODUODENOSCOPY TRANSORAL DIAGNOSTIC 07/21/2015 EGD (MAC) EXPLORATORY OF ABDOMEN 2003 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 Padilla; [address], DONE PERCUTANEOUSLY PAST SURGICAL HISTORY OF lumbar spine injections PICC LINE INSERT/CONSULT 12/23/2014 REDUCTION OF LARGE BREAST Bilateral 11/15/2014 TONSILLECTOMY PRIMARY/SECONDARY <AGE 11 age 4 tonsils Social History Tobacco Use Smoking status: Former Packs/day: 0.10 Years: 10.00 Pack years: 1.00 Types: Cigarettes Quit date: 05/17/2008 Years since quittin.7 Smokeless tobacco: Never Tobacco comments: only 2 per day Vaping Use Vaping Use: Never used Substance Use Topics Alcohol use: Yes Comment: rarely-every few months Drug use: Yes Types: Marijuana ACTIVE PROBLEM LIST Hypothyroidism Obesity, Class Iii, Bmi 40-49.9 (Morbid Obesity) (Hcc) Family History of Other Cardiovascular Diseases(v17.49) Family History of Diabetes Mellitus Disorders of Bursae and Tendons in Shoulder Region, Unspecified Other Affections of Shoulder Region, Not Elsewhere Classified Enthesopathy of Hip Region Tarsal Tunnel Syndrome Lumbosacral Spondylosis Without Myelopathy Lumbago Sjogren's Syndrome (Hcc) Sacroiliac Joint Pain Si (Sacroiliac) Joint Dysfunction Headaches, Cluster Psychological Factors Affecting Medical Condition Radial Nerve Entrapment Lupus Erythematosus Anxiety Disorder Lateral Epicondylitis of Elbow Ulnar Neuropathy Add (Attention Deficit Disorder) González On Cpap Arthritis Insomnia With Sleep Apnea Hypertrophic Cicatrix Fibromyalgia Gerd (Gastroesophageal Reflux Disease) Long-Term Use of Plaquenil Attention Deficit Disorder Rib Pain On Right Side 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 Apply sparingly to area for rash/itching. 15 g 0 DULoxetine (CYMBALTA) 20 mg capsule 2 caps daily x 1 week, then 1 caps daily x 1 week (weaning) 21 capsule 0 Milnacipran (SAVELLA DOSE-PACK) 12.5 mg (5)-25 mg(8)-50 mg(42) DsPk Take 1 Package by mouth as directed. 42 tablet 0 levothyroxine (SYNTHROID) 137 mcg tablet Take 1 tablet by mouth once daily. 35 tablet 5 hydrOXYchloroQUINE (PLAQUENIL) 200 mg tablet Take 1.5 tablets by mouth once daily. 135 tablet 1 magnesium sulfate 4.06 meq/ml liqd Take 10 mg/kg/dose by mouth. ferrous sulfate 325 mg (65 mg iron) tablet Take 325 mg by mouth daily with breakfast. acetaminophen (TYLENOL) 325 mg tablet Take 2 tablets by mouth every 4 hours as needed for Pain. 50 tablet 0 cholecalciferol (VITAMIN D3) 5,000 unit tab Take 5,000 Units by mouth once daily. Current Facility-Administered Medications Medication Dose Route Frequency Provider Last Rate Last Admin diphenhydrAMINE 50 mg injection (BENADRYL) 50 mg INTRAVENOUS PRN Nathan Lindquist MD EPINEPHrine 1 mg/mL (1 mL) 0.3 mg injection 0.3 mg INTRAMUSCULAR PRN Nathan Lindquist MD hydrocortisone sodium succinate (PF) 100 mg in D5W 50 mL (Solu-CORTEF) 100 mg INTRAVENOUS PRN Nathan Lindquist MD metoclopramide HCl 10 mg injection (REGLAN) 10 mg INTRAVENOUS PRN Nathan Lindquist MD metoclopramide HCl 10 mg tab(s) (REGLAN) 10 mg ORAL PRN Nathan Lindquist MD ondansetron (PF) 4 mg injection (ZOFRAN) 4 mg INTRAVENOUS PRN Nathan Lindquist MD ondansetron 4 mg tab(s) (ZOFRAN) 4 mg ORAL PRN Nathan Lindquist MD prochlorperazine 5 mg injection (COMPAZINE) 5 mg INTRAVENOUS PRN Nathan Lindquist MD prochlorperazine 5 mg tab(s) (COMPAZINE) 5 mg ORAL PRN Nathan Lindquist MD HEPATITIS B(1 of 3 - 3-dose series) Never done HIV SCREENING Never done DTAP,TDAP,TD(1 - Tdap) Never done SHINGRIX VACCINE(1 of 2) Never done PNEUMOCOCCAL(2 - PCV) due on 08/28/2011 PAP TESTING due on 04/02/2017 HPV TESTING due on 04/02/2017 DEPRESSION ASSESSMENT Never done COVID-19 VACCINE(4 - Booster for Moderna series) due on 08/11/2021 MAMMOGRAM due on 12/13/2021 INFLUENZA(1) due on 01/18/2022 EXAM: LMP 04/23/2019 Pleasant adult woman in no acute distress. Alert and oriented all spheres. Normal affect and cognition. Speech normal. No deficits to learning or comprehension. Skin warm, dry, pink to lips and nailbeds. Normal turgor. [place] flat rash with mild scle, a few centimeter in diameter. Respirations regular and unlabored. Extrem: no clubbing or cyanosis. Edema: none. Extremities are warm and pink with prompt capillary refill. ASSESSMENT/PLAN: 1. Need for influenza vaccination - ICD9: V04.81, ICD10: Z23 (primary diagnosis) - INFLUENZA VACCINE QUADRIVALENT 6 MO - 64 YRS IM 2. Need for vaccination - ICD9: V05.9, ICD10: Z23 - PNEUMOCOCCAL IMMUNIZATION PPSV 23 - HEPATITIS B VACCINE, ADULT AGE 20+, IM 3. Need for COVID-19 vaccine - ICD9: V04.89, ICD10: Z23 - PFIZER-BIONTECH COVID-19 BIVALENT BOOSTER VACCINE, AGE 12+ YR 4. Attention deficit hyperactivity disorder (ADHD), combined type - ICD9: 314.01, ICD10: F90.2 No improvement with Savella as of yet. 5. Fibromyalgia - ICD9: 729.1, ICD10: M79.7 Above. Finish titration and test mychart on completion pack, will continue to maximum does as needed. Cait Dixon PA-C Some of this note may have been copied and pasted for the purpose of history context and comparison.' documented in this encounter [facility] 01-25-2022 Note HNO ID: [id number] Author: Cait Dixon PA-C Service: ? Author Type: Physician Storage Garage Attendant Type: Progress Notes Filed: 02/16/2022 5:52 AM Note Text: 46 year old female with c/o here for follow up Current concerns: Feels mental health issues out of balance. 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 Feels like fighting body which just doesn't want to move, fighting her head to do anything. Feels she has ADD- asking about treatment. PHQ-9 08/06/2019 11/29/2020 01/25/2022 Score 7 20 25 Hypothyroidism Current medication: Synthroid 137mcg daily Taking as directed on an empty stomach? No. Thyroid pain: Yes. Mass effect: No. Change in energy level/ fatigue? Yes. Progressive decline over last 2 years Sleep disturbance ? excessive sleep. Temperature Intolerance: cold Yes, hot Yes. In females, menstrual cycle issues? Random periods for a few years, was having horrid pain, now just clumps every now and then , If yes: Change in bowel habits? No. Still loose If yes: Constipation? No. If yes: Diarrhea? No. If yes: Weight changes?No. Memory issues: always. Diaphoresis: as above- from duloxetine. Numbness, tingling in mornings in all extremities: worse wht new job, opening boxes all day long. Radiological imaging with contrast dyes within the last 3 months? No. History of radiation exposure to head or neck area? No. Change in hair or skin? No. If yes: Other symptoms: Last 2 Encounter Wt Readings: Date: Wt: 12/18/2021 97.3 kg (214 lb 9.6 oz) 10/24/2021 98.9 kg (218 lb) Last thyroid labs: TSH (uU/mL) Date Value 12/24/2019 3.720 08/07/2019 0.659 ) Anxiety Current medications: Duloxetine 60mg daily : thinks this makes her sweat Fibromyalgia Sjoegren's syndrome Hydroxychloroquine 200mg 1.5 tabs daily Feels medication not making much of a difference, Dry mouth, dry eyes. GONZÁLEZ on CPAP Magnesium? Iron 325mg daily with breakfast Vit D3 [id number] daily Has dry scaly bump on left lateral upper thigh- no itch or pain but bugs her. HISTORIES FAMILY HISTORY Problem Relation Age of Onset Ischemic Heart Disease Maternal Grandmother Diabetes Maternal Grandmother Hypertension Maternal Grandmother Seizures Maternal Grandmother Stroke Maternal Grandmother Cataract Maternal Grandmother Glaucoma Maternal Grandmother Ischemic Heart Disease Maternal Grandfather 40's Diabetes Maternal Grandfather Psychiatry Paternal Grandfather severe psychosis, details unknown, multiple hospitalizations Hypertension Mother Arthritis Other none Colon Cancer Maternal Uncle none PAST MEDICAL HISTORY Diagnosis Date Abdominal pain, other specified site ADD (attention deficit disorder) Anxiety disorder Arthritis 2013 right hip Diarrhea Fibromyalgia Hypothyroid Lumbago Lupus erythematosus Obstructive sleep apnea Sjogren's syndrome (HCC) PAST SURGICAL HISTORY Procedure Laterality Date COLONOSCOPY AND POLYPECTOMY 01/06/2014 hyperplastic sessile polyp repeat in 10 years age 49 COLONOSCOPY FLX DX W/COLLJ SPEC WHEN PFRMD 03/27/2021 ENDOMETRIAL ABLTJ THERMAL W/O HYSTEROSCOPIC GUID 08/19/2011 ESOPHAGOGASTRODUODENOSCOPY TRANSORAL DIAGNOSTIC 07/21/2015 EGD (MAC) EXPLORATORY OF ABDOMEN 2004 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 Padilla; [address], DONE PERCUTANEOUSLY PAST SURGICAL HISTORY OF lumbar spine injections PICC LINE INSERT/CONSULT 12/23/2014 REDUCTION OF LARGE BREAST Bilateral 11/15/2014 TONSILLECTOMY PRIMARY/SECONDARY tonsils Social History Tobacco Use Smoking status: Former Packs/day: 0.10 Years: 10.00 Pack years: 1.00 Types: Cigarettes Quit date: 05/17/2008 Years since quittin.6 Smokeless tobacco: Never Tobacco comments: only 2 per day Vaping Use Vaping Use: Never used Substance Use Topics Alcohol use: Yes Comment: rarely-every few months Drug use: Yes Types: Marijuana ACTIVE PROBLEM LIST Hypothyroidism Obesity, Class Iii, Bmi 40-49.9 (Morbid Obesity) (Hcc) Family History of Other Cardiovascular Diseases(v17.49) Family History of Diabetes Mellitus Disorders of Bursae and Tendons in Shoulder Region, Unspecified Other Affections of Shoulder Region, Not Elsewhere Classified Enthesopathy of Hip Region Tarsal Tunnel Syndrome Lumbosacral Spondylosis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 and oriented, normal gait MUSCULOSKELETAL: JOINT APPEARANCE: No erythema or warmth of any upper or lower extremity joint. RANGE OF MOTION: Able to fully close fists and curl fingers bilaterally. SWOLLEN JOINTS/SYNOVITIS: No synovitis of any joint. TENDER JOINTS: Diffuse tenderness to palpation of the upper and lower extremity muscles and joints bilaterally LABORATORY: Component Latest Ref Rng & Units 04/20/2021 WBC 3.70 - 11.00 k/uL 5.70 RBC 3.90 - 5.20 m/uL 4.33 Hemoglobin 11.5 - 15.5 g/dL 13.4 Platelet Count 150 - 400 k/uL 343 Hemoglobin/Blood,Ur Negative Negative pH, Urine 5.0 - 8.0 7.0 Protein, Urine Negative Negative Creatinine 0.58 - 0.96 mg/dL 0.76 eGFR- >60 eGFR-All Other Races . >60 Protein, Urine Random 0 - 20 mg/dL 6 Creatinine, Ur Random (UCRR) 20 - 300 mg/dL 132.6 Protein/Creat Ratio <0.2 0.0 AST 13 - 35 U/L 28 ALT 7 - 38 U/L 19 Albumin 3.9 - 4.9 g/dL 4.2 WSR 0 - 20 mm/hr 2 CRP <0.9 mg/dL 0.6 C3 86 - 166 mg/dL 125 C4 13 - 46 mg/dL 21 DNA Antibody <30 IU/mL <12 Component Latest Ref Rng & Units 04/18/2016 07/16/2016 Vitamin D 25 Hydroxy 31.0 - 80.0 ng/mL 35.1 TSH 0.400 - 5.500 uU/mL 1.780 WSR 0 - 20 mm/hr 5 *Jan unremarkable CBC, LFTs, ESR, CRP, C3, C4, dsDNA and urine p/c *Feb unremarkable UA *Jan unremarkable Cr, CRP, C3, C4, and dsDNA Component Latest Ref Rng & Units 07/11/2009 Sm Antibody <1.0 AI <0.2 GRAIN ELEVATOR OPERATOR Antibody <1.0 AI 0.5 SSA Antibody <1.0 AI >8.0 (H) SSB Antibody <1.0 AI >8.0 (H) Centromere Ab <1.0 AI <0.2 Scleroderma Ab, IgG <1.0 AI <0.2 Monika 1 Antibody <1.0 AI <0.2 Ribosomal GRAIN ELEVATOR OPERATOR <1.0 AI <0.2 Chromatin Antibody <1.0 AI <0.2 LISA NEGAT Positive (A) LISA Titer NEGAT 1:320 (A) LISA Pattern Speckled . . . IMPRESSION and PLAN: 1. SLE and Sjogren's overlap: With sicca, prior rash, oral ulcers and Raynaud's with +LISA, +SSA and +SSB. - Continue HCQ 300mg daily along with routine eye exams, last normal in Apr - Check monitoring labs. Notify of results via [employer] - Continue biotene products - Continue ophthalmology management (doesn't follow with dentist due to cost) 2. Fibromyalgia: Previously on lyrica and cymbalta. Never wants to ever go back on lyrica. Gabapentin caused weight gain in past. On flexeril in the past. Currently with diffuse active pain - Start cymbalta 30mg/day. Advised to let me know in 3 weeks if she'd like to increase the dose to 60mg/day. Advised this could help with pain and anxiety - Advised aerobic exercise in past - Handicap placard Rx provided in past 3. L knee pain: Relieved s/p Jan steroid knee injection - Continue monitoring 4. R leg discomfort: Maybe early mild RLS (never would want to resume lyrica) - Consider elavil 10mg qhs in future if needed. 5. General health maintenance: - Completed the covid vaccination series in August, May modern - Advised to continue follow-up with PCP for routine health maintenance and malignancy screening Follow-up in 6 months with Matt and 12 months with me or sooner if needed. Patient was instructed to call if any questions or concerns. Thank you for allowing me to participate in the care of your patient. Gino Serrano MD documented in this encounter [facility] 01-17-2021 Note HNO ID: [id number] Author: Ramsey Crum MD Service: ? Author Type: Physician Type: Procedures Filed: 01/18/2021 10:53 AM Note Text: CYSTOSCOPY PROCEDURE NOTE: [id number] Selin Murry is a 45 year old female who presents for a cystoscopy. Pt ID verified with patient: yes Procedure verified with patient: yes Procedure confirmed with physician and learning support aide: yes Sign In: History and Physical Exam reviewed and is unchanged. Primary Diagnosis: hematuria gross Informed Consent Discussed: Yes. Risks, benefits, alternatives and personnel discussed with patient who consents to proceed. Sign in Communication: Completed Time Out: Team Confirms the Correct Patient, Correct Procedure; Cystoscopy, Correct Site and Site Marking, Correct Position (if applicable). Fire Safety Check List Reviewed: Yes Affirmation of Time Out: Yes Sign Out: Sign Out Discussion: Completed Physician: Ramsey Crum MD A urinalysis was performed - - revealing no evidence of infection. The benefits, risks, alternatives of the cystoscopy procedure and personnel were discussed with the patient. The verbal consent was obtained and the patient agrees to proceed. Procedure: The patient was placed on the procedure table in the supine/lithotomy position and prepped in the usual sterile fashion. Antibiotic was- Bactrim 2% Lidocaine Jelly was placed per urethra as an anesthetic in the standard fashion. The cystoscope was carefully placed into the urethra. ---URETHRA: with no evidence of stricture into the bladder. ---BLADDER: The posterior, superior and lateral lopez and dome of the bladder were all well visualized and the scope was retroflexed upon itself. The findings were consistent with no evidence of bladder mucosal pathology. At the conclusion of the procedure, the cystoscope was removed atraumatically. The patient tolerated the procedure without complications. Patient was given standard post-procedure instructions, and was directed to complete the course of oral antibiotics and increase oral fluid intake as directed. ASSESSMENT/PLAN: 1. Gross hematuria - ICD9: 599.71, ICD10: R31.0 - CYSTO.[email or web address] Ramsey Crum MD See progress note for plans Ramsey Crum MD [facility] 01-17-2021 Note HNO ID: [id number] Author: Ramsey Crum MD Service: ? Author Type: Physician Type: Progress Notes Filed: 01/18/2021 10:53 AM Note Text: ESTABLISHED PATIENT OFFICE VISIT PATIENT INFO: Selin Murry 45 year old HPI 01/17/2021 CC: cysto Urine today is negative Presents for cystoscopy today and has not had recurrent gross hematuria Had pain at that time but gone Cystoscopy shows no bladder lesion so I guess always possible she might of passed a stone and was gone by the time she had her CT which showed no urologic abnormality She will follow-up as needed Past Urology Hx: January 11, 2021?seen by Hood Chery? 45 year old female is here today for Gross Hematuria and pain of the pubic Bone which does not seems to be urologic in nature, but could be bladder spasms, we discussed doing We discussed the need for full hematuria workup due to the Gross Blood in the urine. These tests and procedures will be ordered today. And if the pain remains she may need to see pain management in we dod not see a urologic cause and she understands that. RADS: January 17, 2021?cystoscopy?negative Creatinine Date Value Ref Range Status 12/01/2020 0.85 0.58 - 0.96 mg/dL Final No results found for: PSA Color (no units) Date Value 12/01/2020 Light Yellow Clarity (no units) Date Value 12/01/2020 Clear Glucose, Urine (mg/dL) Date Value 12/01/2020 Negative Bilirubin, Urine (no units) Date Value 12/01/2020 Negative Ketones, Urine (no units) Date Value 12/01/2020 Negative Specific [place], Ur (no units) Date Value 12/01/2020 1.009 Hemoglobin/Blood,Ur ( ) Date Value 12/01/2020 Negative pH, Urine (no units) Date Value 12/01/2020 8.0 Protein, Urine (no units) Date Value 12/01/2020 Negative Urobilinogen (E.U./dL) Date Value 12/01/2020 Negative Nitrites (no units) Date Value 12/01/2020 Negative Leukest (no units) Date Value 12/01/2020 Negative Review of Systems Constitutional: Negative. HENT: Negative. Eyes: Negative. Respiratory: Negative. Cardiovascular: Negative. Gastrointestinal: Negative. Endocrine: Negative. Genitourinary: See HPI Musculoskeletal: Negative. Skin: Negative. Allergic/Immunologic: Negative. Neurological: Negative. Hematological: Negative. Psychiatric/Behavioral: Negative. I reviewed and confirmed ROS obtained by MA HISTORIES PAST MEDICAL HISTORY Diagnosis Date - Abdominal pain, other specified site - ADD (attention deficit disorder) - Anxiety disorder - Arthritis 2013 right hip - Diarrhea - Fibromyalgia - Hypothyroid - Lumbago - Lupus erythematosus - Obstructive sleep apnea - Sjogren's syndrome (HCC) FAMILY HISTORY Problem Relation Age of Onset - Arthritis Other none - Ischemic Heart Disease Maternal Grandmother - Diabetes Maternal Grandmother - Hypertension Maternal Grandmother - Seizures Maternal Grandmother - Stroke Maternal Grandmother - Cataract Maternal Grandmother - Glaucoma Maternal Grandmother - Ischemic Heart Disease Maternal Grandfather 40's - Diabetes Maternal Grandfather - Psychiatry Paternal Grandfather severe psychosis, details unknown, multiple hospitalizations - Hypertension Mother - Colon Cancer Maternal Uncle none SOCIAL HISTORY Social History Tobacco Use - Smoking status: Former Smoker Packs/day: 0.10 Years: 10.00 Pack years: 1.00 Types: Cigarettes Quit date: 05/17/2008 Years since quittin.6 - Smokeless tobacco: Never Used - Tobacco comment: only 2 per day Vaping Use - Vaping Use: Never used Substance Use Topics - Alcohol use: Yes Comment: rarely-every few months - Drug use: Yes Types: Marijuana MEDICATIONS: metroNIDAZOLE (FLAGYL) 500 mg tablet, Take 500 mg by mouth twice daily. magnesium sulfate 4.06 meq/ml liqd, Take 10 mg/kg/dose by mouth. ferrous sulfate (IRON) 325 mg (65 mg iron) tablet, Take 325 mg by mouth daily with breakfast. levothyroxine (SYNTHROID) 137 mcg tablet, Take 1 tablet by mouth once daily. hydrOXYchloroQUINE (PLAQUENIL) 200 mg tablet, Take 1.5 tablets by mouth once daily. acetaminophen (TYLENOL) 325 mg tablet, Take 2 tablets by mouth every 4 hours as needed for Pain. Cholecalciferol, Vitamin D3, (VITAMIN D-3) 5,000 unit tab, Take 5,000 Units by mouth once daily. Physical Exam Constitutional: General: She is not in acute distress. Appearance: She is not diaphoretic. HENT: Head: Normocephalic and atraumatic. Nose: Nose normal. Eyes: General: Left eye: No discharge. Neck: Trachea: No tracheal deviation. Pulmonary: Effort: Pulmonary effort is normal. No respiratory distress. Musculoskeletal: General: No deformity. Normal range of motion. Cervical back: Normal range of motion. Skin: General: Skin is warm. Neurological: Mental Status: She is alert and oriented to person, place, and time. Gait: Gait is intact. Psychiatric: Mood and Affect: (more content not included)... [facility] documented as of this encounter (statuses as of 10/24/2021) [facility] History of Past illness Narrative* Problem Noted Date Resolved Date Gastroesophageal reflux disease without esophagi tis 07/21/2015 07/21/2015 Right upper quadrant pain 07/21/20152015 Cellulitis of breast 12/30/2014 04/18/2016 Streptococcal infection(041.00) 12/30/2014 04/18/2016 Pseudomonas infection 12/30/2014 04/18/2016 Dermatitis due to drug reaction 12/30/2014 04/18/2016 Open wound of chest wall with complication 11/3004/18/2016 Open wound of right breast 11/30/201404/18 GONZÁLEZ (obstructive sleep apnea) 04/06/2013 Systemic lupus erythematosus 04/12/2008 Overview: Dx'd 02/[address] Styles See Dr[address] St for regular eye care Tobacco use disorder 04/12/2008 11/12/2011 Routine Gynecological Examination 04/12/2008 03/17/2015 Overview: [facility] Obstructive sleep apnea 07/25/19 14 Diarrhea 04/18/2016 Abdominal pain, other specified site 04/18/2016 documented as of this encounter (statuses as of 12/18/2021) [facility] History of Past illness Narrative* Problem Noted Date Resolved Date Gastroesophageal reflux disease without esophagi tis 07/21/2015 07/21/2015 Right upper quadrant pain 07/21/20152015 Cellulitis of breast 12/30/2014 04/18/2016 Streptococcal infection(041.00) 12/30/2014 04/18/2016 Pseudomonas infection 12/30/2014 04/18/2016 Dermatitis due to drug reaction 12/30/2014 04/18/2016 Open wound of chest wall with complication 11/3004/18/2016 Open wound of right breast 11/30/201404/18 GONZÁLEZ (obstructive sleep apnea) 04/06/2013 Systemic lupus erythematosus 04/12/2008 Overview: Dx'd 02/[address] Styles See Dr[address] St for regular eye care Tobacco use disorder 04/12/2008 11/12/2011 Routine Gynecological Examination 04/12/2008 03/17/2015 Overview: [facility]if desired Obstructive sleep apnea 07/25/19 14 Diarrhea 04/18/2016 Abdominal pain, other specified site 04/18/2016 documented as of this encounter (statuses as of 12/21/2021) [facility] History of Past illness Narrative* Problem Noted Date Resolved Date Gastroesophageal reflux disease without esophagi tis 07/21/2015 07/21/2015 Right upper quadrant pain 07/21/20152015 Cellulitis of breast 12/30/2014 04/18/2016 Streptococcal infection(041.00) 12/30/2014 04/18/2016 Pseudomonas infection 12/30/2014 04/18/2016 Dermatitis due to drug reaction 12/30/2014 04/18/2016 Open wound of chest wall with complication 11/3004/18/2016 Open wound of right breast 11/30/201404/18 GONZÁLEZ (obstructive sleep apnea) 04/06/2013 Systemic lupus erythematosus 04/12/2008 Overview: Dx'd 02/[address] Styles See Dr[address] St for regular eye care Tobacco use disorder 04/12/2008 11/12/2011 Routine Gynecological Examination 04/12/2008 03/17/2015 Overview: To [facility] when[facility]if desired Obstructive sleep apnea 07/25/19 14 Diarrhea 04/18/2016 Abdominal pain, other specified site 04/18/2016 documented as of this encounter (statuses as of 01/19/2022) [facility] History of Past illness Narrative* Problem Noted Date Resolved Date Gastroesophageal reflux disease without esophagi tis 07/21/2015 07/21/2015 Right upper quadrant pain 07/21/20152015 Cellulitis of breast 12/30/2014 04/18/2016 Streptococcal infection(041.00) 12/30/2014 04/18/2016 Pseudomonas infection 12/30/2014 04/18/2016 Dermatitis due to drug reaction 12/30/2014 04/18/2016 Open wound of chest wall with complication 11/3004/18/2016 Open wound of right breast 11/30/201404/18 GONZÁLEZ (obstructive sleep apnea) 04/06/2013 Systemic lupus erythematosus 04/12/2008 Overview: Dx'd 02/[address] Styles See Dr[address] St for regular eye care Tobacco use disorder 04/12/2008 11/12/2011 Routine Gynecological Examination 04/12/2008 03/17/2015 Overview: To schedule with [facility] when/if desired Obstructive sleep apnea 07/25/19 14 Diarrhea 04/18/2016 Abdominal pain, other specified site 04/18/2016 documented as of this encounter (statuses as of 01/22/2022) [facility] History of Past illness Narrative* Problem Noted Date Resolved Date Gastroesophageal reflux disease without esophagi tis 07/21/2015 07/21/2015 Right upper quadrant pain 07/21/20152015 Cellulitis of breast 12/30/2014 04/18/2016 Streptococcal infection(041.00) 12/30/2014 04/18/2016 Pseudomonas infection 12/30/2014 04/18/2016 Dermatitis due to drug reaction 12/30/2014 04/18/2016 Open wound of chest wall with complication 11/3004/18/2016 Open wound of right breast 11/30/201404/18 GONZÁLEZ (obstructive sleep apnea) 04/06/2013 Systemic lupus erythematosus 04/12/2008 Overview: Dx'd 02/[address] for regular eye care Tobacco use disorder 04/12/2008 11/12/2011 Routine Gynecological Examination 04/12/2008 03/17/2015 Overview: [facility] when[facility]if desired Obstructive sleep apnea 07/25/19 14 Diarrhea 04/18/2016 Abdominal pain, other specified site 04/18/2016 documented as of this encounter (statuses as of 01/25/2022) [facility] History of Past illness Narrative* Problem Noted Date Resolved Date Gastroesophageal reflux disease without esophagi tis 07/21/2015 07/21/2015 Right upper quadrant pain 07/21/20152015 Cellulitis of breast 12/30/2014 04/18/2016 Streptococcal infection(041.00) 12/30/2014 04/18/2016 Pseudomonas infection 12/30/2014 04/18/2016 Dermatitis due to drug reaction 12/30/2014 04/18/2016 Open wound of chest wall with complication 11/3004/18/2016 Open wound of right breast 11/30/201404/18 GONZÁLEZ (obstructive sleep apnea) 04/06/2013 Systemic lupus erythematosus 04/12/2008 Overview: Dx'd 02/[address] Styles See Dr[address] St for regular eye care Tobacco use disorder 04/12/2008 11/12/2011 Routine Gynecological Examination 04/12/2008 03/17/2015 Overview: [facility] Obstructive sleep apnea 07/25/19 14 Diarrhea 04/18/2016 Abdominal pain, other specified site 04/18/2016 documented as of this encounter (statuses as of 02/05/2022) [facility] History of Past illness Narrative* Problem Noted Date Resolved Date Gastroesophageal reflux disease without esophagi tis 07/21/2015 07/21/2015 Right upper quadrant pain 07/21/20152015 Cellulitis of breast 12/30/2014 04/18/2016 Streptococcal infection(041.00) 12/30/2014 04/18/2016 Pseudomonas infection 12/30/2014 04/18/2016 Dermatitis due to drug reaction 12/30/2014 04/18/2016 Open wound of chest wall with complication 11/3004/18/2016 Open wound of right breast 11/30/201404/18 GONZÁLEZ (obstructive sleep apnea) 04/06/2013 Systemic lupus erythematosus 04/12/2008 Overview: Dx'd 02/[address] Styles See Dr[address] St for regular eye care Tobacco use disorder 04/12/2008 11/12/2011 Routine Gynecological Examination 04/12/2008 03/17/2015 Overview: [facility] desired Obstructive sleep apnea 07/25/19 14 Diarrhea 04/18/2016 Abdominal pain, other specified site 04/18/2016 documented as of this encounter (statuses as of 02/16/2022) [facility] History of Past illness Narrative* Problem Noted Date Resolved Date Gastroesophageal reflux disease without esophagi tis 07/21/2015 07/21/2015 Right upper quadrant pain 07/21/20152015 Cellulitis of breast 12/30/2014 04/18/2016 Streptococcal infection(041.00) 12/30/2014 04/18/2016 Pseudomonas infection 12/30/2014 04/18/2016 Dermatitis due to drug reaction 12/30/2014 04/18/2016 Open wound of chest wall with complication 11/3004/18/2016 Open wound of right breast 11/30/201404/18 GONZÁLEZ (obstructive sleep apnea) 04/06/2013 Systemic lupus erythematosus 04/12/2008 Overview: Dx'd 02/[address] Styles See Dr[address] St for regular eye care Tobacco use disorder 04/12/2008 11/12/2011 Routine Gynecological Examination 04/12/2008 03/17/2015 Overview: [facility]if desired Obstructive sleep apnea 07/25/19 14 Diarrhea 04/18/2016 Abdominal pain, other specified site 04/18/2016 documented as of this encounter (statuses as of 02/20/2022) [facility] History of Past illness Narrative* Problem Noted Date Resolved Date Gastroesophageal reflux disease without esophagi tis 07/21/2015 07/21/2015 Right upper quadrant pain 07/21/20152015 Cellulitis of breast 12/30/2014 04/18/2016 Streptococcal infection(041.00) 12/30/2014 04/18/2016 Pseudomonas infection 12/30/2014 04/18/2016 Dermatitis due to drug reaction 12/30/2014 04/18/2016 Open wound of chest wall with complication 11/3004/18/2016 Open wound of right breast 11/30/201404/18 GONZÁLEZ (obstructive sleep apnea) 04/06/2013 Systemic lupus erythematosus 04/12/2008 Overview: Dx'd 02/[address] Styles See Dr[address] St for regular eye care Tobacco use disorder 04/12/2008 11/12/2011 Routine Gynecological Examination 04/12/2008 03/17/2015 Overview: To schedule with [facility] when/if desired Obstructive sleep apnea 07/25/19 14 Diarrhea 04/18/2016 Abdominal pain, other specified site 04/18/2016 documented as of this encounter (statuses as of 02/26/2022) [facility] History of Past illness Narrative* Problem Noted Date Resolved Date Gastroesophageal reflux disease without esophagi tis 07/21/2015 07/21/2015 Right upper quadrant pain 07/21/20152015 Cellulitis of breast 12/30/2014 04/18/2016 Streptococcal infection(041.00) 12/30/2014 04/18/2016 Pseudomonas infection 12/30/2014 04/18/2016 Dermatitis due to drug reaction 12/30/2014 04/18/2016 Open wound of chest wall with complication 11/3004/18/2016 Open wound of right breast 11/30/201404/18 GONZÁLEZ (obstructive sleep apnea) 04/06/2013 Systemic lupus erythematosus 04/12/2008 Overview: Dx'd 02/[address] Styles See Dr[address] [facility] for regular eye care Tobacco use disorder 04/12/2008 11/12/2011 Routine Gynecological Examination 04/12/2008 03/17/2015 Overview: [facility] when[facility]if desired Obstructive sleep apnea 07/25/19 14 Diarrhea 04/18/2016 Abdominal pain, other specified site 04/18/2016 documented as of this encounter (statuses as of 02/26/2022) [facility] History of Past illness Narrative* Problem Noted Date Resolved Date Gastroesophageal reflux disease without esophagi tis 07/21/2015 07/21/2015 Right upper quadrant pain 07/21/20152015 Cellulitis of breast 12/30/2014 04/18/2016 Streptococcal infection(041.00) 12/30/2014 04/18/2016 Pseudomonas infection 12/30/2014 04/18/2016 Dermatitis due to drug reaction 12/30/2014 04/18/2016 Open wound of chest wall with complication 11/3004/18/2016 Open wound of right breast 11/30/201404/18 GONZÁLEZ (obstructive sleep apnea) 04/06/2013 Systemic lupus erythematosus 04/12/2008 Overview: Dx'd 02/[address] Styles See Dr[address] for regular eye care Tobacco use disorder 04/12/2008 11/12/2011 Routine Gynecological Examination 04/12/2008 03/17/2015 Overview: [facility] Obstructive sleep apnea 07/25/19 14 Diarrhea 04/18/2016 Abdominal pain, other specified site 04/18/2016 documented as of this encounter (statuses as of 03/19/2022) [facility] History of Past illness Narrative* Problem Noted Date Resolved Date Gastroesophageal reflux disease without esophagi tis 07/21/2015 07/21/2015 Right upper quadrant pain 07/21/20152015 Cellulitis of breast 12/30/2014 04/18/2016 Streptococcal infection(041.00) 12/30/2014 04/18/2016 Pseudomonas infection 12/30/2014 04/18/2016 Dermatitis due to drug reaction 12/30/2014 04/18/2016 Open wound of chest wall with complication 11/3004/18/2016 Open wound of right breast 11/30/201404/18 GONZÁLEZ (obstructive sleep apnea) 04/06/2013 Systemic lupus erythematosus 04/12/2008 Overview: Dx'd 02/[address] Styles See Dr[address] St for regular eye care Tobacco use disorder 04/12/2008 11/12/2011 Routine Gynecological Examination 04/12/2008 03/17/2015 Overview: [facility]if [facility] Obstructive sleep apnea 07/25/19 14 Diarrhea 04/18/2016 Abdominal pain, other specified site 04/18/2016 documented as of this encounter (statuses as of 07/24/2022) [facility] History of Past illness Narrative* Problem Noted Date Resolved Date Gastroesophageal reflux disease without esophagi tis 07/21/2015 07/21/2015 Right upper quadrant pain 07/21/20152015 Cellulitis of breast 12/30/2014 04/18/2016 Streptococcal infection(041.00) 12/30/2014 04/18/2016 Pseudomonas infection 12/30/2014 04/18/2016 Dermatitis due to drug reaction 12/30/2014 04/18/2016 Open wound of chest wall with complication 11/3004/18/2016 Open wound of right breast 11/30/201404/18 GONZÁLEZ (obstructive sleep apnea) 04/06/2013 Systemic lupus erythematosus 04/12/2008 Overview: Dx'd 02/[address] Styles See Dr[address] St for regular eye care Tobacco use disorder 04/12/2008 11/12/2011 Routine Gynecological Examination 04/12/2008 03/17/2015 Overview: [facility]if desired Obstructive sleep apnea 07/25/19 14 Diarrhea 04/18/2016 Abdominal pain, other specified site 04/18/2016 documented as of this encounter (statuses as of 10/16/2022) [facility] History of Past illness Narrative* Problem Noted Date Diagnosed Date Resolved Date Gastroesophageal reflux dise ase without esophagitis 07/21/2015 07/21/2015 Right upper quadrant pain 07/21/2015 Cellulitis of breast 12/30/2014 016 Streptococcal infection(041.00) 12/30/2014 04/18/2016 Pseudomonas infection 12/30/20142015 Dermatitis due to drug reaction 12/30/2014 04/18/2016 Open wound of chest wall with complication 11/30/2014 04/18/2016 Open wound of right breast 11/30/2014 1 06/18/2015 GONZÁLEZ (obstructive sleep apnea) 04/06/2013 04/06/2013 Systemic lupus erythematosus 04/12/2008 09/14/2010 Overview: Dx'd 02/[address] Styles See Dr[address] St for regular eye care Tobacco use disorder 04/12/2008 012 Routine Gynecological Examination 04/12/2008 03/17/2015 Overview: [facility] Obstructive sleep apnea 11/2013 Diarrhea 04/18/2016 Abdominal pain, other specified site 04/18/2016 documented as of this encounter (statuses as of 01/21/2023) [facility] Diagnosis Systemic lupus erythematosus, unspecified SLE type, unspecified organ involvement status (HCC)- Primary Long-term use of Plaquenil Encounter for long-term (current) use of other medications Fibromyalgia Mylagia and myositis, unspecified Pain in joint, multiple sites Lupus erythematosus, unspecified form [facility] Diagnosis Upper abdominal pain- Primary Abdominal pain, other specified site Close exposure to COVID-19 virus Nausea Nausea alone documented [facility] this encounter [facility] Diagnosis Hypothyroidism, acquired Unspecified hypothyroidism [facility] Diagnosis Encounter for screening mammogram for breast cancer [facility] Diagnosis Other eczema- Primary Hypothyroidism, unspecified type Attention deficit hyperactivity disorder (ADHD), combined type Fibromyalgia Mylagia and myositis, unspecified Gastroesophageal reflux disease, unspecified whether esophagitis present Sjogren's syndrome, with unspecified organ involvement (HCC) Long-term use of Plaquenil Encounter for long-term (current) use of other medications GONZÁLEZ on CPAP Obstructive sleep apnea (adult) (pediatric) Fatigue, unspecified type [facility] Need for influenza vaccination- Primary Need for prophylactic vaccination and inoculation against influenza Need for vaccination Need for prophylactic vaccination and inoculation against unspecified single disease Need for COVID-19 vaccine Attention deficit hyperactivity disorder (ADHD), combined type Fibromyalgia Mylagia and myositis, unspecified documented in this encounter [facility] note* Diagnosis Vaccine reaction, initial encounter- Primary documented in this encounter [facility] note* Diagnosis Attention deficit hyperactivity disorder (ADHD), combined type Fibromyalgia Mylagia and myositis, unspecified documented in this encounter [facility] note* Diagnosis Attention deficit hyperactivity disorder (ADHD), combined type Fibromyalgia Mylagia and myositis, unspecified [facility] Diagnosis Lupus erythematosus, unspecified form documented in this encounter [facility] for referral (narrative)* Diagnostic Procedure Only (Routine) - Pending Review Specialty Diagnoses / Procedures Referred By Yohana fernandez Referred To Contact [facility] Diagnoses Encounter for screening mammogram for breast cancer Procedures HARRY SCREENING SCREENING MAMMOGRAPHY BI 2-VIEW BREAST INC Nathan Lindsey MD [address] [place] [address] [facility] [address] [place] [address] Referral ID Status Reason Start Date Expiration Date Visits Requested Visits Authorized [id number] Pending Review Auto-Generat ed Referral 01/17/2022 02/16/2023 1 1 [facility] for referral (narrative)* Diagnostic Procedure Only (Routine) - Pending Review Specialty Diagnoses / Procedures Referred By Yohana fernandez Referred To Contact [facility] Diagnoses Encounter for screening mammogram for breast cancer Procedures HARRY SCREENING SCREENING MAMMOGRAPHY BI 2-VIEW BREAST INC Nathan Lindsey MD [address] [place] [address] [facility] [address] [place] [address] Referral ID Status Reason Start Date Expiration Date Visits Requested Visits Authorized [id number] Pending Review Auto-Generat ed Referral 01/16/2023 02/15/2024 1 1 [facility] Summary Purpose Family History No Family History Records FoundNo Family History Records FoundNo Family History Records FoundNo Family History Records FoundNo Family History Records Found Advance Directives No Advanced Directives Records FoundDocuments on File Type Date Recorded 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 Advance Directive(s) 03/27/2021 7:19 AM Advance Directive(s) 03/13/2021 10:47 AM Advance Directive(s) 07/21/2015 1:21 PM Advance Directive(s) 07/11/2015 10:25 AM Additional Source Comments INFORMATION SOURCE (unrecogn ized section and content) DATE CREATED AUTHOR AUTHOR'S ORGANIZ ATION 03/30/2021 [facility] DATE CREATED AUTHOR AUTHOR'S ORGANIZ ATION 01/21/2023 [facility] DATE CREATED AUTHOR AUTHOR'S ORGANIZ ATION 02/24/2023 [facility] ([place] DATE CREATED AUTHOR AUTHOR'S ORGANIZ ATION 05/15/2023 [facility] Source Comments (unrecognize d section and content) In the event this informatio n is protected by the Federal Confidentiality of Alcohol and Drug Abuse Patient Records regulations: The Federal rules restrict any use of the information to criminally investigate or prosecute any alcohol or drug abuse patient.[facility] event this information is protected by the Federal Confidentiality of Alcohol and Drug Abuse Patient Records regulations: The Federal rules restrict any use of the information to criminally investigate or prosecute any alcohol or drug abuse patient.[facility] the event this information is protected by the Federal Confidentiality of Alcohol and Drug Abuse Patient Records regulations: The Federal rules restrict any use of the information to criminally investigate or prosecute any alcohol or drug abuse patient.[facility] the event this information is protected by the Federal Confidentiality of Alcohol and Drug Abuse Patient Records regulations: The Federal rules restrict any use of the information to criminally investigate or prosecute any alcohol or drug abuse patient.[facility] the event this information is protected by the Federal Confidentiality of Alcohol and Drug Abuse Patient Records regulations: The Federal rules restrict any use of the information to criminally investigate or prosecute any alcohol or drug abuse patient.[facility] the event this information is protected by the Federal Confidentiality of Alcohol and Drug Abuse Patient Records regulations: The Federal rules restrict any use of the information to criminally investigate or prosecute any alcohol or drug abuse patient.[facility] the event this information is protected by the Federal Confidentiality of Alcohol and Drug Abuse Patient Records regulations: The Federal rules restrict any use of the information to criminally investigate or prosecute any alcohol or drug abuse patient.[facility] the event this information is protected by the Federal Confidentiality of Alcohol and Drug Abuse Patient Records regulations: The Federal rules restrict any use of the information to criminally investigate or prosecute any alcohol or drug abuse patient.[facility] the event this information is protected by the Federal Confidentiality of Alcohol and Drug Abuse Patient Records regulations: The Federal rules restrict any use of the information to criminally investigate or prosecute any alcohol or drug abuse patient.[facility] the event this information is protected by the Federal Confidentiality of Alcohol and Drug Abuse Patient Records regulations: The Federal rules restrict any use of the information to criminally investigate or prosecute any alcohol or drug abuse patient.[facility] the event this information is protected by the Federal Confidentiality of Alcohol and Drug Abuse Patient Records regulations: The Federal rules restrict any use of the information to criminally investigate or prosecute any alcohol or drug abuse patient.[facility] the event this information is protected by the Federal Confidentiality of Alcohol and Drug Abuse Patient Records regulations: The Federal rules restrict any use of the information to criminally investigate or prosecute any alcohol or drug abuse patient.[facility] the event this information is protected by the Federal Confidentiality of Alcohol and Drug Abuse Patient Records regulations: The Federal rules restrict any use of the information to criminally investigate or prosecute any alcohol or drug abuse patient.[facility] the event this information is protected by the Federal Confidentiality of Alcohol and Drug Abuse Patient Records regulations: The Federal rules restrict any use of the information to criminally investigate or prosecute any alcohol or drug abuse patient.[facility] the event this information is protected by the Federal Confidentiality of Alcohol and Drug Abuse Patient Records regulations: The Federal rules restrict any use of the information to criminally investigate or prosecute any alcohol or drug abuse patient.[facility] Reason for Visit (unrecogniz ed section and content) 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, 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, 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 Reason Comments vaccine questions Reason Onset Date Comments Refill Request 01/19/2022 Reason Comments Follow Up Derm Problem Behind left thigh Reason Comments Patient Update Positive COVID at ho me test Reason Onset Date Comments Follow Up Immunizations 02/16/2022 Flu vaccination Reason Comments Hives Left arm, after gett ing vaccine on Saturday, redness and swelling, painful to touch Reason Onset Date Comments Refill Request 02/25/2022 Reason Onset Date Comments Refill Request 02/23/2022 Reason Comments Medication Problem Reason Onset Date Comments Refill Request 07/24/2022 Reason Comments Refill Request Care Teams (unrecognized sec tion and content) Creative Services Designer Relationship Specialty Start Date End Date Nathan Lindquist MD [address], [place] [phone] PCP - General Family Practice 04/25/15 Creative Services Designer Relationship Specialty Start Date End Date Nathan Lindquist MD [address], [place] [id number] PCP - General Family Practice 04/25/15 Creative Services Designer Relationship Specialty Start Date End Date Nathan Lindquist MD [address], [place] [id number] PCP - General Family Practice 04/25/15 Creative Services Designer Relationship Specialty Start Date End Date Nathan Lindquist MD [address] [facility] [place] [address] PCP - General Family Practice 04/25/15 Creative Services Designer Relationship Specialty Start Date End Date Nathan Lindquist MD [address] [facility] [place] [address] PCP - General Family Practice 04/25/15 Creative Services Designer Relationship Specialty Start Date End Date Nathan Lindquist MD [address] [facility] [place] [address] PCP - General Family Practice 04/25/15 Creative Services Designer Relationship Specialty Start Date End Date Nathan Lindquist MD [address] [facility] [place] [address] PCP - General Family Medicine 04/25/15 Creative Services Designer Relationship Specialty Start Date End Date Nathan Lindquist MD [address] [facility] [place] [address] PCP - General Family Medicine 04/25/15 Creative Services Designer Relationship Specialty Start Date End Date Nathan Lindquist MD [address] [facility] [place] [address] PCP - General Family Medicine 04/25/15 Creative Services Designer Relationship Specialty Start Date End Date Nathan Lindquist MD [address] [facility] [place] [address] PCP - General Family Medicine 04/25/15 Creative Services Designer Relationship Specialty Start Date End Date Nathan Lindquist MD [address] [facility] [place] [address] PCP - General Family Medicine 04/25/15 Creative Services Designer Relationship Specialty Start Date End Date Nathan Lindquist MD [address] [facility] [place] [address] PCP - General Family Medicine 04/25/15 Creative Services Designer Relationship Specialty Start Date End Date Nathan Lindquist MD [address] [place] [address] PCP - General Family Medicine 04/25/15 FOR RECORDS PERTAINING TO PATIENTS WHO ARE OR HAVE BEEN ENROLLED IN A CHEMICAL DEPENDENCY/SUBSTANCEABUSE PROGRAM, SOME INFORMATION MAY BE OMITTED. This clinical summary was aggregated from multiple sources. Caution should be exercised in using it in the provision of clinical care. This summary normalizes information from multiple sources, and as a consequence, information in this document may materially change the coding, format and clinical context of patient data. In addition, data may be omitted in some cases. CLINICAL DECISIONS SHOULD BE BASED ON THE PRIMARY CLINICAL RECORDS. [facility]. provides no warranty or guarantee of the accuracy or completeness of information in this document.
[2023-05-16 10:45] VITALS: BP 112/86; PULSE 104; RESP 16; TEMP 36.7; O2SAT 100
[2023-05-16 10:47] LABS: ALB/GLOB Ratio 0.6 RATIO (0.9-2.4); AST(SGOT) 162 U/L (15-37); Alanine Aminotransfer ALT/SGPT 87 U/L (13-56); Albumin, Serum 2.4 g/dL (3.2-5.0); Alkaline Phosphatase 183 U/L (45-117); Anion Gap 7 (5-15); BUN 33 mg/dL (7-18); BUN/Creat Ratio 28.4 RATIO (10-20); Calcium,Total 8.6 mg/dL (8.5-10.1); Chloride 98 mmol/L (98-107); Creatinine, Serum 1.16 mg/dL (0.55-1.02); EST Glomerular Filtration Rate 53 mL/min (>60); Est Glom Filt Rate - Afr Amer 64 mL/min (>60); Globulin 3.7 g/dL (2.2-4.2); Glucose 88 mg/dL (74-106); Potassium 3.6 mmol/L (3.5-5.1); Protein, Total 6.1 g/dL (6.4-8.2); Sodium Level 132 mmol/L (136-145)
[2023-05-16 12:57] VITALS: BP 142/86; PULSE 79; RESP 15; O2SAT 98
== END 2023-05-16 12:59 | disposition home or self-care (01) ==
PROVIDERS: Emergency Provider Emergency Medicine; Visit Provider Emergency Medicine
DX: L50.9 Urticaria, unspecified (principal); M32.9 Systemic lupus erythematosus, unspecified; F12.90 Cannabis use, unspecified, uncomplicated; Z79.899 Other long term (current) drug therapy; Z87.891 Personal history of nicotine dependence
CPT/HCPCS: 80053; 85025; 96361; 96374; 96375; 99283; J7030; A4216